=== PATIENT | female | born 2000 ===

== ENCOUNTER 2024-02-13 06:33 | Observation (INO) | payer BC, SELFPAY ==
[2024-02-13] VITALS (10 sets, daily range): BP systolic 75–157; BP diastolic 49–96; PULSE 97–123; RESP 19–28; TEMP 36.6–39.2; O2SAT 95–100; BMI 34.9
--- NOTE | ~2024-02-13 | CT_ITS ---
EXAMINATION: CT HEAD WITHOUT CONTRAST (STROKE PROTOCOL) CLINICAL INFORMATION: Stroke protocol. Left-sided facial droop. Sudden onset headache. COMPARISON: None available. TECHNIQUE: Contiguous axial imaging was performed from the skull base to vertex without intravenous administration of contrast. This CT examination was performed using dose optimization techniques as appropriate, variously including the following: *Automated exposure control *Adjustment of mA and/or kV according to patient size (this includes techniques or standardized protocols for targeted exams where dose is matched to indication/reason for exam; i.e. extremities or head) *Use of iterative reconstruction technique DLP: 700 mGy-cm FINDINGS: The brain parenchyma has normal attenuation. The alexis-white matter differentiation is well preserved. No evidence of an acute major vascular territory infarction. No intracranial hemorrhage, extra-axial fluid collection, focal mass effect or midline shift. The ventricles have normal size and configuration; no hydrocephalus. The brainstem and cerebellum have a normal appearance. The cerebellar tonsils are in normal position. The calvarium is intact. The visualized paranasal sinuses are well aerated and without air-fluid levels. The mastoid air cells and middle ear cavities are clear. The orbits and globes are unremarkable. The temporomandibular joints are normal. CT/CT head for stroke IMPRESSION: No acute intracranial pathology. This critical result was discussed with GURPREET Smalls, at 7:26 AM on . It was ascertained that the content and urgency of the report was understood at the time of direct communication.
--- NOTE | ~2024-02-13 | FL_ITS ---
FLUOROSCOPIC GUIDED LUMBAR PUNCTURE INDICATION: Fever, headache, altered mental status, COVID+ TECHNIQUE/FINDINGS: Risks and benefits and possible complications were discussed with the patient's mother and the consent form was signed. Patient was placed prone on the fluoroscopy table. The back was prepped and draped in routine sterile fashion. Betadine was used as a skin antiseptic. Utilizing fluoroscopic guidance, the L3-4 interlaminar space was accessed with a 22 gauge quinkie spinal needle and clear CSF fluid was obtained. Opening pressure was 33 cm H20 in the left lateral decubitus position. 12 cc of fluid was sent for analysis. The needle was removed without immediate complications. Total fluoroscopy time: 0.5 min FL/FL guided lumbar puncture LP IMPRESSION: Successful fluoroscopic lumbar puncture. Opening pressure is elevated at 33 cm H2O. This procedure was performed by Junior Diallo PA-C and supervised by Dr. Escobar.
--- NOTE | ~2024-02-13 | XR_ITS ---
EXAMINATION: XR CHEST CLINICAL INFORMATION: Shortness of breath COMPARISON: None available. TECHNIQUE: Frontal view of the chest was obtained. FINDINGS: No significant abnormality is noted involving the heart, lungs, mediastinum, bony thorax or soft tissues. XR/XR chest 1V IMPRESSION: Unremarkable examination.
--- NOTE | ~2024-02-13 | XR_ITS ---
EXAMINATION: XR CHEST CLINICAL INFORMATION: Dyspnea COMPARISON: 02/13/2024 TECHNIQUE: Frontal view of the chest was obtained. FINDINGS: The lungs are hypoinflated. No definite consolidation. No evidence of pneumothorax, significant pleural effusion, or overt pulmonary edema. Cardiac silhouette appears prominent though may be accentuated by low lung volumes. No acute osseous findings are seen. XR/XR chest 1V IMPRESSION: Low lung volumes without definite acute findings.
--- NOTE | ~2024-02-13 | CT_ITS ---
EXAMINATION: CTA NECK WITH CONTRAST (STROKE) CTA BRAIN WITH CONTRAST (STROKE) CLINICAL INFORMATION: Suspect acute stroke. Assess for major vessel occlusion. Please call report. Left-sided facial droop. COMPARISON: Noncontrast images of the head from 02/13/2024. TECHNIQUE: CTA of the head and neck was performed in the axial plane from the mediastinum to the skull vertex using 70 mL Omnipaque 350 intravenous contrast. Additional reformatted multiplanar images including maximum intensity projection MIP images are generated on the CT workstation. This CT examination was performed using dose optimization techniques as appropriate, variously including the following: *Automated exposure control *Adjustment of mA and/or kV according to patient size (this includes techniques or standardized protocols for targeted exams where dose is matched to indication/reason for exam; i.e. extremities or head) *Use of iterative reconstruction technique The degree of stenosis, if seen, is determined by criteria similar to NASCET. DLP: 1500 mGy-cm FINDINGS: HEAD: The brain parenchyma has normal attenuation. No intracranial mass, cerebral edema, hemorrhage, extraaxial fluid collection or midline shift. The ventricles and sulci are normal in size and configuration. The calvarium is intact. The paranasal sinuses are well-aerated and without air fluid levels. The orbits, globes and temporomandibular joints are unremarkable. SOFT TISSUES AND LUNG APICES: Lung apices are normal. No fluid collection, soft tissue mass or lymphadenopathy in the neck. NECK CTA: This is a mildly motion degraded examination. The aortic arch has a classic configuration and the arch vessel origins are widely patent. The vertebral arteries are co-dominant and both vertebral origins are widely patent. Both common carotid arteries are normal in course and caliber. Both internal carotid arteries are widely patent and without evidence of dissection or focal stenosis. CRANIAL CTA: There is normal opacification of the major intracranial vessels. The petrous, cavernous and supraclinoid segments of the ICAs are widely patent. The intradural segments of the vertebral arteries and basilar artery are patent. No evidence of acute proximal large vessel occlusion, flow-limiting stenosis or saccular intracranial aneurysm. No abnormal parenchymal enhancement or regional oligemia. No evidence of dural venous sinus thrombosis. CT/CT angio head neck stroke IMPRESSION: No acute imaging abnormalities. No evidence of carotid or vertebral artery stenosis. Also, no acute vascular pathology is identified within the head. There is no evidence of intracranial hemorrhage, mass or infarction. This critical result was discussed with GURPREET Smalls, at 7:26 AM on . It was ascertained that the content and urgency of the report was understood at the time of direct communication.
--- NOTE | 2024-02-13 06:50 | ECG_ITS ---
Test Reason : SYNCOPE Blood Pressure : / mmHG Vent. Rate : 111 BPM Atrial Rate : 111 BPM P-R Int : 136 ms QRS Dur : 076 ms QT Int : 308 ms P-R-T Axes : 056 048 017 degrees QTc Int : 418 ms Sinus tachycardia Otherwise normal ECG No previous ECGs available Referred By: Alexa Hernández Electronically Signed By:EZEQUIEL WINTER MD
--- NOTE | 2024-02-13 06:51 | ED_ITS ---
HPI - General Adult General Chief complaint: Syncope Stated complaint: syncope Time Seen by Provider: 02/13/24 06:42 Source: patient Mode of arrival: EMS Limitations: no limitations History of Present Illness ED Provider: Alexa Hernández PA-C HPI narrative: This is a 23 yo female pmh of anxiety, Bipolar 1 Disorder, PTSD presenting with cc of syncope arriving via EMS. Patient reports going to the gym this morning around 6:00 am, feeling unwell at the gym with nausea, weakness and headache. Per EMS, a family member then found her passed out at home and she was brought here via ambulance. Patient reports no headache at time of exam but, but states she has pressure in her head, is nauseas, has chest pressure, palpitations, tingling in both hands, tingling all over face, and reports I'm freezing . Patient is slurring her words and having difficulties following commands and answering questions completely. Reports she has never had a syncopal episode like this in the past that she can recall. Seen at 0700. NIH stroke scale difficult to asses due to patient having difficulty following commands. Related Data Allergies Allergy/AdvReac Type Severity Reaction Status Date / Time Penicillins Allergy Unknown Unknown Verified 02/13/24 06:46 Review of Systems 2 Review of Systems: Yes all other systems are reviewed and are negative PMFSH Past Medical History Attestation statement: The following information was validated with the patient. Source: old records reviewed and nursing notes reviewed Social History Social History Smoked in Last 30 Days: No Use of substances other than those prescribed or required for medical reasons: No Advance Directives: No Do you have a plan to hurt others: No Plan Patient : No Physical Exam ED Vital Signs: Vital Signs - 24 hr 02/13/24 08:24 02/13/24 10:14 02/13/24 11:55 Temperature 99.5 F 102.5 F H 99.8 F Pulse Rate 116 H 117 H 123 H Respiratory Rate 26 H 27 H 28 H Blood Pressure 141/61 H 128/77 119/61 Pulse Oximetry 100 96 96 Oxygen Delivery Method Room Air Room Air Room Air 02/13/24 13:18 02/13/24 15:36 02/13/24 15:37 Temperature Pulse Rate 107 H 118 H Respiratory Rate Blood Pressure 115/66 114/67 Pulse Oximetry 95 Oxygen Delivery Method Room Air 02/13/24 15:38 Temperature Pulse Rate 114 H Respiratory Rate Blood Pressure 75/49 L Pulse Oximetry Oxygen Delivery Method BMI result Body Mass Index 34.9 Appearance: ?NIH stroke scale difficult to asses due to patient having difficulty following commands and answering questions. Patient slurring her words. Head: Normocephalic, atraumatic, no step-offs or deformities Eyes: Pupils equal, round and reactive to light.? Neck: Normal inspection.? Neck supple.? CVS: + Sinus tachycardia.? Pulses normal.? Respiratory: No acute respiratory distress.? +Quick and labored breathing secondary to anxiety (per patient). Breath sounds normal.? Abdomen: Soft and nontender.? Skin: Skin warm and dry.? Normal skin color.? Normal skin turgor.? Extremities: Strength and ROM difficulty to assess due to patient difficulty following commands and answering questions. No lower extremity edema.? No calf ttp. Neuro: Oriented X 3.? Slow to respond. + Patient slurring her words and having trouble following commands and answering questions. Left side of face drooping and unable to puff left cheek on initial exam after reeval no longer having drooping Course Reevaluation(s) Reevaluation #1: I did speak to neurology who states r/o SAH due to hx. Unlikely ischemic stroke. R/O other causes such as possible migrane. Time: 07:20 Reevaluation #2: At this time, infection suspected. Temp of 102.5 F. Blood cultures drawn and pending. Patient will be covered with ceftriaxone as well as vancomycin. Time: 10:18 Reevaluation #3: Patient does not have a white count however does have a neutrophil predominance, I can not rule out aseptic meningitis. Chemistry unremarkable. CPK slightly elevated 153. Receiving IV fluids. Negative troponin, negative BNP. D-dimer negative, coags normal. Chest x-ray unremarkable. CT head and neck angio evidence of carotid or vertebral artery stenosis no acute imaging abnormalities. Dry CT normal. Patient continues to have very slow speech, stating she does not feel well. She has a fever. Lumbar puncture indicated to rule out meningitis/encephalitis. Time: 10:42 Additional Reevaluation(s): 1200: COVID test returned positive. Droplet precautions started. Unremarkable LP slightly elevated opening pressure but not by much + orthostats --> admit Medications Administered Discontinued Medications Generic Name Dose Route Start Last Admin Trade Name Nabil PRN Reason Stop Dose Admin Acetaminophen 975 mg 02/13/24 10:17 02/13/24 10:21 Acetaminophen 325 Mg Tablet PO 02/13/24 10:18 975 mg ONCE ONE Administration Hydroxyzine HCl 25 mg 02/13/24 08:35 02/13/24 09:10 Hydroxyzine Hcl 25 Mg Tablet PO 02/13/24 08:36 25 mg ONCE ONE Administration Ceftriaxone Sodium 1 gm/ 50 mls @ 100 mls/hr 02/13/24 10:16 02/13/24 11:24 Sodium Chloride IV 02/13/24 10:45 Infused ONCE ONE Infusion Vancomycin HCl 2,000 mg in 500 mls @ 250 mls/hr 02/13/24 10:16 02/13/24 14:29 Vancomycin/Ns IV 02/13/24 12:15 Infused ONCE ONE Infusion Sodium Chloride 2,940 mls @ 2,940 mls/hr 02/13/24 10:18 02/13/24 14:30 Ns 30 ml/kg infuse over 1 hr (2940 ml) 02/13/24 11:17 Infused IV Infusion .Q1H STA Ceftriaxone Sodium 1 gm/ 50 mls @ 100 mls/hr 02/13/24 10:40 02/13/24 12:20 Sodium Chloride IV 02/13/24 11:09 Infused ONCE ONE Infusion Iohexol 100 ml 02/13/24 07:32 02/13/24 07:32 Iohexol 350 Mg/Ml 100 Ml Infus..Btl IV 02/13/24 07:33 70 ml ONCE ONE Administration Lorazepam 2 mg 02/13/24 13:04 02/13/24 13:08 Lorazepam 1 Mg Tablet PO 02/13/24 13:05 2 mg ONCE ONE Administration Medical Decision Making Medical Decision Making [facility] Narrative: 0708 23 yo female presenting via EMS for an episode of syncope this morning. Patient went to the gym this morning, felt unwell, had headache, nausea, then family member found her passed out at home. Now reporting tingling in bilateral hands, face, chest pressure. PE: NIH stroke scale difficult to asses due to patient having difficulty following commands and answering questions. Patient slurring her words. Neuro: Oriented X 3. Slow to respond.? + Patient slurring her words and having trouble following commands and answering questions. Left side of face drooping and unable to puff left cheek. Concerns for syncope vs complex migrane. Rule out ischemic/hemorrhagic stroke/SAH, meningitis/encephalitis. Metabolic derangements vs electrolyte abnormalities vs panic attack vs TIA vs [place] Palsy. Less likely acs, pe, dissection Plan: Imaging, labs, lumbar puncture Due to the L sided droop on exam will call a stroke protocol Differential Diagnosis Differential Diagnoses: The differential diagnosis associated with the presentation includes Concerns for syncope vs complex migrane. Rule out ischemic/hemorrhagic stroke/SAH, meningitis/encephalitis. Metabolic derangements vs electrolyte abnormalities vs panic attack vs TIA vs [place] Palsy. Less likely acs, pe, dissection Lab Data MDM Lab Attestation statement: I reviewed the patient's lab results. 02/13/24 07:00 02/13/24 07:00 Labs: Lab Results 02/13/24 02/13/24 02/13/24 Range/Units 07:00 07:33 07:34 WBC 6.4 (4.8-10.8) X10*3/uL RBC 4.53 (4.20-5.50) X10*6/uL Hgb 12.3 (12.0-16.0) g/dl Hct 37.1 (37.0-47.0) % MCV 81.9 (80.0-98.0) fL MCH 27.2 (27.0-33.0) pg MCHC 33.2 (31.0-35.0) g/dl RDW 12.8 (11.0-16.0) % Plt Count 292 (160-400) X10*3/uL MPV 9.8 (9.4-12.3) fL Immature Gran % (Auto) 0.5 H (0.0-0.4) % Neut % (Auto) 78.3 H (45-73) % Lymph % (Auto) 12.8 L (20-40) % [place] % (Auto) 6.9 (2-11) % Eos % (Auto) 0.9 (0-4) % Baso % (Auto) 0.6 (0-2) % Lymph # (Auto) 0.8 L (1.2-4.9) X10*3/uL [place] # (Auto) 0.4 (0.1-1.2) X10*3/uL Eos # (Auto) 0.1 (0.0-0.4) X10*3/uL Baso # (Auto) 0.0 (0.0-0.2) X10*3/uL Abs Immat Gran (auto) 0.03 (0.00-0.03) X10*3/uL Absolute Neuts (auto) 5.0 (2.0-8.3) x10*3/uL Absolute Nucleated RBC 0.000 (0.0-0.012) X10*3/uL Nucleated RBC % (auto) 0.0 (0.0-0.2) /100WBC Whole Blood PT 12.5 (11.1-13.5) sec Whole Blood INR 1.0 (0.9-1.1) D-Dimer High Sensitivty 171 NG/ML Sodium 139 (135-145) mmol/L Potassium 3.6 (3.3-5.1) mmol/L Chloride 107 (96-108) mmol/L Carbon Dioxide 24 (22-29) mmol/L Anion Gap 12 (12-20) BUN 13 (9-16) mg/dL Creatinine 0.88 (0.5-1.4) mg/dL Estim Creat Clear Calc 115.3 Estimated GFR > 60 POC Glucose 79 (60-115) mg/dL Random Glucose 101 (60-115) mg/dL Lactic Acid (0.5-2.0) mmol/L Calcium 9.9 (8.4-10.2) mg/dL Total Bilirubin 0.4 (0.0-1.0) mg/dL AST 23 (5-31) U/L ALT 21 (0-31) U/L Alkaline Phosphatase 85 (39-117) U/L Total Creatine Kinase 153 H (26-140) U/L Troponin I High Sens < 2.7 (<3.5-17.0) ng/L B-Natriuretic Peptide < 10 (<100) pg/mL Total Protein 8.1 H (6.5-8.0) g/dL Albumin 4.2 (3.5-5.0) g/dL Beta HCG, Quant < 2 mIU/mL CSF Tube Number CSF Volume ML CSF Appearance CSF Color CSF WBC MM*3 CSF RBC MM*3 CSF Neutrophils % CSF Appearance (b) CSF Glucose mg/dL CSF Total Protein (15-45) mg/dL Influenza Type A (PCR) (Negative) Influenza Type B (PCR) (Negative) RSV RNA Qual (PCR) (Negative) SARS-CoV-2 RNA (RT-PCR) (Negative) 02/13/24 02/13/24 02/13/24 Range/Units 10:35 10:47 13:31 WBC (4.8-10.8) X10*3/uL RBC (4.20-5.50) X10*6/uL Hgb (12.0-16.0) g/dl Hct (37.0-47.0) % MCV (80.0-98.0) fL MCH (27.0-33.0) pg MCHC (31.0-35.0) g/dl RDW (11.0-16.0) % Plt Count (160-400) X10*3/uL MPV (9.4-12.3) fL Immature Gran % (Auto) (0.0-0.4) % Neut % (Auto) (45-73) % Lymph % (Auto) (20-40) % [place] % (Auto) (2-11) % Eos % (Auto) (0-4) % Baso % (Auto) (0-2) % Lymph # (Auto) (1.2-4.9) X10*3/uL [place] # (Auto) (0.1-1.2) X10*3/uL Eos # (Auto) (0.0-0.4) X10*3/uL Baso # (Auto) (0.0-0.2) X10*3/uL Abs Immat Gran (auto) (0.00-0.03) X10*3/uL Absolute Neuts (auto) (2.0-8.3) x10*3/uL Absolute Nucleated RBC (0.0-0.012) X10*3/uL Nucleated RBC % (auto) (0.0-0.2) /100WBC Whole Blood PT (11.1-13.5) sec Whole Blood INR (0.9-1.1) D-Dimer High Sensitivty NG/ML Sodium (135-145) mmol/L Potassium (3.3-5.1) mmol/L Chloride (96-108) mmol/L Carbon Dioxide (22-29) mmol/L Anion Gap (12-20) BUN (9-16) mg/dL Creatinine (0.5-1.4) mg/dL Estim Creat Clear Calc Estimated GFR POC Glucose (60-115) mg/dL Random Glucose (60-115) mg/dL Lactic Acid 1.5 (0.5-2.0) mmol/L Calcium (8.4-10.2) mg/dL Total Bilirubin (0.0-1.0) mg/dL AST (5-31) U/L ALT (0-31) U/L Alkaline Phosphatase (39-117) U/L Total Creatine Kinase (26-140) U/L Troponin I High Sens (<3.5-17.0) ng/L B-Natriuretic Peptide (<100) pg/mL Total Protein (6.5-8.0) g/dL Albumin (3.5-5.0) g/dL Beta HCG, Quant mIU/mL CSF Tube Number 1 CSF Volume ML CSF Appearance CSF Color CSF WBC MM*3 CSF RBC MM*3 CSF Neutrophils % CSF Appearance (b) CSF Glucose mg/dL CSF Total Protein (15-45) mg/dL Influenza Type A (PCR) NEGATIVE (Negative) Influenza Type B (PCR) NEGATIVE (Negative) RSV RNA Qual (PCR) NEGATIVE (Negative) SARS-CoV-2 RNA (RT-PCR) POSITIVE A (Negative) 02/13/24 Range/Units 13:31 WBC (4.8-10.8) X10*3/uL RBC (4.20-5.50) X10*6/uL Hgb (12.0-16.0) g/dl Hct (37.0-47.0) % MCV (80.0-98.0) fL MCH (27.0-33.0) pg MCHC (31.0-35.0) g/dl RDW (11.0-16.0) % Plt Count (160-400) X10*3/uL MPV (9.4-12.3) fL Immature Gran % (Auto) (0.0-0.4) % Neut % (Auto) (45-73) % Lymph % (Auto) (20-40) % [place] % (Auto) (2-11) % Eos % (Auto) (0-4) % Baso % (Auto) (0-2) % Lymph # (Auto) (1.2-4.9) X10*3/uL [place] # (Auto) (0.1-1.2) X10*3/uL Eos # (Auto) (0.0-0.4) X10*3/uL Baso # (Auto) (0.0-0.2) X10*3/uL Abs Immat Gran (auto) (0.00-0.03) X10*3/uL Absolute Neuts (auto) (2.0-8.3) x10*3/uL Absolute Nucleated RBC (0.0-0.012) X10*3/uL Nucleated RBC % (auto) (0.0-0.2) /100WBC Whole Blood PT (11.1-13.5) sec Whole Blood INR (0.9-1.1) D-Dimer High Sensitivty NG/ML Sodium (135-145) mmol/L Potassium (3.3-5.1) mmol/L Chloride (96-108) mmol/L Carbon Dioxide (22-29) mmol/L Anion Gap (12-20) BUN (9-16) mg/dL Creatinine (0.5-1.4) mg/dL Estim Creat Clear Calc Estimated GFR POC Glucose (60-115) mg/dL Random Glucose (60-115) mg/dL Lactic Acid (0.5-2.0) mmol/L Calcium (8.4-10.2) mg/dL Total Bilirubin (0.0-1.0) mg/dL AST (5-31) U/L ALT (0-31) U/L Alkaline Phosphatase (39-117) U/L Total Creatine Kinase (26-140) U/L Troponin I High Sens (<3.5-17.0) ng/L B-Natriuretic Peptide (<100) pg/mL Total Protein (6.5-8.0) g/dL Albumin (3.5-5.0) g/dL Beta HCG, Quant mIU/mL CSF Tube Number 4 CSF Volume 3.0 ML CSF Appearance CLEAR CSF Color COLORLESS CSF WBC 0 MM*3 CSF RBC 0 MM*3 CSF Neutrophils 1 % CSF Appearance (b) Clear, Colorless CSF Glucose 58 mg/dL CSF Total Protein 19.9 (15-45) mg/dL Influenza Type A (PCR) (Negative) Influenza Type B (PCR) (Negative) RSV RNA Qual (PCR) (Negative) SARS-CoV-2 RNA (RT-PCR) (Negative) Radiology Impression Discussion of test interpretation with radiology: I have reviewed the radiologist's reading. Critical Care Time Critical Care Time Critical Care Time: Yes Total Critical Care Time: 60 Attestation: I attest to this time spent taking care of the patient, obtaining history, physical, reviewing labs, imaging, speaking to my attending, specialist or hospitalist. Discharge Plan Discharge Clinical Impression: Syncope and collapse, COVID-19, Orthostatic hypotension Patient Disposition: Admitted As Inpatient Print Language: Persian
[2024-02-13 07:05] LABS: MANUAL DIFF FLAG NO
[2024-02-13 07:10] LABS: Basophils Percent Auto 0.6 % (0-2); Eosinophils Absolute Auto 0.1 X10*3/uL (0.0-0.4); Eosinophils Percent Auto 0.9 % (0-4); Hematocrit 37.1 % (37.0-47.0); Hemoglobin 12.3 g/dl (12.0-16.0); Imm Gran Abs Auto 0.03 X10*3/uL (0.00-0.03); Imm Gran Pct Auto 0.5 % (0.0-0.4); Lymphocytes Absolute Auto 0.8 X10*3/uL (1.2-4.9); Lymphocytes Percent Auto 12.8 % (20-40); Mean Corpuscular HGB Conc 33.2 g/dl (31.0-35.0); Mean Corpuscular Hemoglobin 27.2 pg (27.0-33.0); Mean Corpuscular Volume 81.9 fL (80.0-98.0); Mean Platelet Volume 9.8 fL (9.4-12.3); Monocytes Absolute Auto 0.4 X10*3/uL (0.1-1.2); Monocytes Percent Auto 6.9 % (2-11); Neutrophils Percent Auto 78.3 % (45-73); Platelet Count 292 X10*3/uL (160-400); Red Blood Count 4.53 X10*6/uL (4.20-5.50); Red Cell Distribution Width 12.8 % (11.0-16.0); White Blood Count 6.4 X10*3/uL (4.8-10.8)
[2024-02-13 07:16] LABS: D Dimer High Sensitivity 171 NG/ML
[2024-02-13 07:24] LABS: Alanine Aminotransferase 21 U/L (0-31); Albumin Level 4.2 g/dL (3.5-5.0); Alkaline Phosphatase 85 U/L (39-117); Anion Gap 12 (12-20); Aspartate Amino Transferase 23 U/L (5-31); Bilirubin Total 0.4 mg/dL (0.0-1.0); Blood Urea Nitrogen 13 mg/dL (9-16); Calcium 9.9 mg/dL (8.4-10.2); Carbon Dioxide 24 mmol/L (22-29); Chloride 107 mmol/L (96-108); Creatinine Clr Calc Pharmacy 115.3; Estimated Glomerular Filt Rate > 60; Glucose Random 101 mg/dL (60-115); Potassium 3.6 mmol/L (3.3-5.1); Sodium 139 mmol/L (135-145); Total Protein 8.1 g/dL (6.5-8.0)
[2024-02-13] MEDS: iohexoL 350 MG/ML 100 ML INFUS..BTL IV (07:32)
[2024-02-13 07:43] LABS: Prothrombin Time Whole Bld POC 12.5 sec (11.1-13.5)
[2024-02-13 07:44] LABS: Glucose, Whole Blood 79 mg/dL (60-115)
--- NOTE | 2024-02-13 08:03 | PC.NURSE ---
patient bought to ED via ems fr c/o syncope at home. patient arrives to ED alert, visibly anxious, c/o tingling in face. patient anxiety increased significantly when RN inserted IV, hyperventilating, crying. PA assessed patient. patient brought to CT scanner to r/o stroke. PA at bedside at this time reviewing plan of care with patient and family. patient calm and this time. resting with eyes closed.
[2024-02-13 08:54] LABS: Troponin-I High Sensitivity < 2.7 ng/L (<3.5-17.0)
[2024-02-13 08:56] LABS: B Type Natriuretic Peptide < 10 pg/mL (<100)
[2024-02-13] MEDS: hydrOXYzine HCL 25 MG TABLET PO (09:10)
[2024-02-13] MEDS: Acetaminophen 325 MG TABLET 975 MG PO (10:21)
[2024-02-13] MEDS: cefTRIAXone sodium 1 GM in 0.9 % Sodium Chloride 50 ML IV ×2 (10:47→11:22)
[2024-02-13 10:58] LABS: Lactic Acid 1.5 mmol/L (0.5-2.0)
[2024-02-13 11:13] LABS: HCG Quantitative < 2 mIU/mL
[2024-02-13 12:04] LABS: Influenza A PCR NEGATIVE (Negative); Influenza B PCR NEGATIVE (Negative); Resp Syncy Virus RNA Qual PCR NEGATIVE (Negative); SARS COV2 PCR INHOUSE POSITIVE (Negative)
[2024-02-13] MEDS: vancomycin/NS 2,000 MG/500 ML PLAST..BAG 250 MG IV (12:08)
[2024-02-13] MEDS: LORazepam 1 MG TABLET 2 MG PO (13:08)
--- NOTE | 2024-02-13 13:19 | PC.NURSE ---
Assumed care of this patient at 1100, patient fatigued/weak in bed, found to be COVID+, ST on monitor, IV fluids/abx running, patient currently in IR for LP.
--- NOTE | 2024-02-13 13:41 | PM.PROC ---
Brief Operative Note Date of procedure: 02/13/24 Pre-op diagnosis: Fever, lethargy, ?AMS, Covid + Post-op diagnosis: same Procedure: FL Lumbar puncture L2-3, Opening pressure 33 cm H20, 12 cc clear csf removed and sent for anlaysis No immediate complications Anesthesia: local Condition: stable
[2024-02-13 14:24] LABS: CSF Appearance Clear, Colorless; CSF Tube # 1
[2024-02-13 14:34] LABS: Glucose CSF 58 mg/dL; Total Protein CSF 19.9 mg/dL (15-45)
[2024-02-13 14:47] LABS: Appearance CSF CLEAR
[2024-02-13 14:48] LABS: CSF Tube # 4; Color CSF COLORLESS; Neutrophils CSF 1 %; Red Blood Cell CSF 0 MM*3; White Blood Cell CSF 0 MM*3
[2024-02-13 15:48] LABS: Cryptococcus neoformans/gattii Not Detected (Not Detect.); Enterovirus Not Detected (Not Detect.); Escherichia coli K1 Not Detected (Not Detect.); Haemophilus influenzae Not Detected (Not Detect.); Herpes simplex virus 1 Not Detected (Not Detect.); Herpes simplex virus 2 Not Detected (Not Detect.); Human herpesvirus 6 Not Detected (Not Detect.); Human parechovirus Not Detected (Not Detect.); Listeria monocytogenes Not Detected (Not Detect.); Neisseria meningitidis Not Detected (Not Detect.); Streptococcus agalactiae Not Detected (Not Detect.); Streptococcus pneumoniae Not Detected (Not Detect.); Varicella zoster virus Not Detected (Not Detect.)
[2024-02-13] MEDS: 0.9 % Sodium Chloride 1,000 ML 999 ML IV (16:03)
--- NOTE | 2024-02-13 16:12 | P.HPHOSP_ITS ---
History of Present Illness Date of Service: 02/13/24 Chief Complaint: syncope 23yo F with bipolar disorder who went to the gym this morning around 4:30am but was only able to exercise on the treadmill for a few minutes because she started feeling unwell. She developed nausea and frontal headache and went home. Her sister heard her fall and found her passed out for about 45 seconds. She was shivering but did not have rhythmic jerking. She was confused and slurring her speech. No incontinence. EMS was called and brought her in. In the ED, she was noted to have a left-sided facial droop. The PA spoke to the neurologist who recommended ruling out SAH. She then developed a temperature of 102.5F. Blood cultures were drawn and she was given ceftriaxone and vancomycin, along with lorazepam and acetaminophen. CT of the head was normal, along with CT angio of the head and neck. Lumbar puncture was done by IR and returned 0 WBCs and 0 RBCs. Covid-19 PCR was positive. Facial droop and headache have resolved completely. She denies any unilateral weakness, blurry vision, neck stiffness, cough, sore throat, or shortness of breath. Orthostatic vital signs showed BP drop from 115/66 supine to 75/49 standing. Review of Systems 2 Review of Systems: Yes all other systems are reviewed and are negative [facility] Medical History (Updated 02/13/24 @ 16:18 by Skip Mack MD) Bipolar depression Pertinent family history: no epilepsy/seizure Social History Smoked in Last 30 Days: No Use of substances other than those prescribed or required for medical reasons: No Advance Directives: No Do you have a plan to hurt others: No Plan Patient : No Meds Allergies Allergy/AdvReac Type Severity Reaction Status Date / Time Penicillins Allergy Unknown Unknown Verified 02/13/24 06:46 Active Medications: Current Medications Acetaminophen (Acetaminophen 325 Mg Tablet) 650 mg PO Q6H PRN PRN Reason: Pain, Mild (Pain Scale 1-3) Sodium Chloride (Ns) 1,000 mls @ 999 mls/hr IV .Q1H1M ROBERT Stop: 02/13/24 16:45 Last Admin: 02/13/24 16:03 Dose: 999 mls/hr Sodium Chloride (Ns) 1,000 mls @ 100 mls/hr IVCONT .Q10H ROBERT Ondansetron HCl (Ondansetron Hcl 4 Mg/2 Ml Vial) 4 mg IVPUSH Q8H PRN PRN Reason: Nausea and Vomiting Physical Exam 2 Vital Signs and Narrative: Vital Signs: Last Vital Signs Temp 99.8 F 02/13/24 11:55 Pulse 114 H 02/13/24 15:38 Resp 28 H 02/13/24 11:55 BP 75/49 L 02/13/24 15:38 Pulse Ox 95 02/13/24 13:18 O2 Del Method Room Air 02/13/24 13:18 BMI result Body Mass Index 34.9 Gen: in no acute distress HEENT: sclera anicteric, moist mucus membranes, no oral lesions Neck: supple, no adenopathy Lungs: clear to auscultation bilaterally Heart: regular, tachycardic, no murmurs Abd: soft, non-tender, non-distended Ext: no edema Skin: warm/well-perfused Neuro: alert and oriented x3, no focal findings Psych: appropriate affect Results Labs 02/13/24 07:00 02/13/24 07:00 Labs: Laboratory Results - last 24 hr 02/13/24 02/13/24 02/13/24 07:00 07:33 07:34 MCV 81.9 MCH 27.2 MCHC 33.2 RDW 12.8 Plt Count 292 MPV 9.8 Immature Gran % (Auto) 0.5 H Neut % (Auto) 78.3 H Lymph % (Auto) 12.8 L [place] % (Auto) 6.9 Eos % (Auto) 0.9 Baso % (Auto) 0.6 Lymph # (Auto) 0.8 L [place] # (Auto) 0.4 Eos # (Auto) 0.1 Baso # (Auto) 0.0 Abs Immat Gran (auto) 0.03 Absolute Neuts (auto) 5.0 Absolute Nucleated RBC 0.000 Nucleated RBC % (auto) 0.0 Whole Blood PT 12.5 Whole Blood INR 1.0 D-Dimer High Sensitivty 171 Anion Gap 12 Estim Creat Clear Calc 115.3 Estimated GFR > 60 POC Glucose 79 Random Glucose 101 Lactic Acid Calcium 9.9 Total Bilirubin 0.4 AST 23 ALT 21 Alkaline Phosphatase 85 Total Creatine Kinase 153 H Troponin I High Sens < 2.7 B-Natriuretic Peptide < 10 Total Protein 8.1 H Albumin 4.2 Beta HCG, Quant < 2 CSF Tube Number CSF Volume CSF Appearance CSF Color CSF WBC CSF RBC CSF Neutrophils CSF Appearance (b) CSF Glucose CSF Total Protein CSF C.neoform/gat PCR CSF CMV DNA (PCR) CSF Enterovirus (PCR) CSF E. coli K1 (PCR) CSF H. influenzae (PCR) CSF HSV I (PCR) CSF HSV II (PCR) CSF HHV 6 (PCR) CSF L.monocytogenes PCR CSF N. meningitidis PCR CSF Parechovirus (PCR) CSF S. agalactiae (PCR) CSF S. pneumoniae (PCR) CSF VZV (PCR) Influenza Type A (PCR) Influenza Type B (PCR) RSV RNA Qual (PCR) SARS-CoV-2 RNA (RT-PCR) 02/13/24 02/13/24 02/13/24 10:35 10:47 13:31 MCV MCH MCHC RDW Plt Count MPV Immature Gran % (Auto) Neut % (Auto) Lymph % (Auto) [place] % (Auto) Eos % (Auto) Baso % (Auto) Lymph # (Auto) [place] # (Auto) Eos # (Auto) Baso # (Auto) Abs Immat Gran (auto) Absolute Neuts (auto) Absolute Nucleated RBC Nucleated RBC % (auto) Whole Blood PT Whole Blood INR D-Dimer High Sensitivty Anion Gap Estim Creat Clear Calc Estimated GFR POC Glucose Random Glucose Lactic Acid 1.5 Calcium Total Bilirubin AST ALT Alkaline Phosphatase Total Creatine Kinase Troponin I High Sens B-Natriuretic Peptide Total Protein Albumin Beta HCG, Quant CSF Tube Number 1 CSF Volume CSF Appearance CSF Color CSF WBC CSF RBC CSF Neutrophils CSF Appearance (b) CSF Glucose CSF Total Protein CSF C.neoform/gat PCR CSF CMV DNA (PCR) CSF Enterovirus (PCR) CSF E. coli K1 (PCR) CSF H. influenzae (PCR) CSF HSV I (PCR) CSF HSV II (PCR) CSF HHV 6 (PCR) CSF L.monocytogenes PCR CSF N. meningitidis PCR CSF Parechovirus (PCR) CSF S. agalactiae (PCR) CSF S. pneumoniae (PCR) CSF VZV (PCR) Influenza Type A (PCR) NEGATIVE Influenza Type B (PCR) NEGATIVE RSV RNA Qual (PCR) NEGATIVE SARS-CoV-2 RNA (RT-PCR) POSITIVE A 02/13/24 13:31 MCV MCH MCHC RDW Plt Count MPV Immature Gran % (Auto) Neut % (Auto) Lymph % (Auto) [place] % (Auto) Eos % (Auto) Baso % (Auto) Lymph # (Auto) [place] # (Auto) Eos # (Auto) Baso # (Auto) Abs Immat Gran (auto) Absolute Neuts (auto) Absolute Nucleated RBC Nucleated RBC % (auto) Whole Blood PT Whole Blood INR D-Dimer High Sensitivty Anion Gap Estim Creat Clear Calc Estimated GFR POC Glucose Random Glucose Lactic Acid Calcium Total Bilirubin AST ALT Alkaline Phosphatase Total Creatine Kinase Troponin I High Sens B-Natriuretic Peptide Total Protein Albumin Beta HCG, Quant CSF Tube Number 4 CSF Volume 3.0 CSF Appearance CLEAR CSF Color COLORLESS CSF WBC 0 CSF RBC 0 CSF Neutrophils 1 CSF Appearance (b) Clear, Colorless CSF Glucose 58 CSF Total Protein 19.9 CSF C.neoform/gat PCR Not Detected CSF CMV DNA (PCR) Not Detected CSF Enterovirus (PCR) Not Detected CSF E. coli K1 (PCR) Not Detected CSF H. influenzae (PCR) Not Detected CSF HSV I (PCR) Not Detected CSF HSV II (PCR) Not Detected CSF HHV 6 (PCR) Not Detected CSF L.monocytogenes PCR Not Detected CSF N. meningitidis PCR Not Detected CSF Parechovirus (PCR) Not Detected CSF S. agalactiae (PCR) Not Detected CSF S. pneumoniae (PCR) Not Detected CSF VZV (PCR) Not Detected Influenza Type A (PCR) Influenza Type B (PCR) RSV RNA Qual (PCR) SARS-CoV-2 RNA (RT-PCR) Imaging Radiologist's Impressions: Impressions Head CT 02/13/24 07:15 IMPRESSION: No acute intracranial pathology. This critical result was discussed with GURPREET Smalls, at 7:26 AM on . It was ascertained that the content and urgency of the report was understood at the time of direct communication. Head/Neck CTA 02/13/24 07:29 IMPRESSION: No acute imaging abnormalities. No evidence of carotid or vertebral artery stenosis. Also, no acute vascular pathology is identified within the head. There is no evidence of intracranial hemorrhage, mass or infarction. This critical result was discussed with GURPREET Smalls, at 7:26 AM on . It was ascertained that the content and urgency of the report was understood at the time of direct communication. Chest X-Ray 02/13/24 08:40 IMPRESSION: Unremarkable examination. Lumbar Puncture Fluoroscopy 02/13/24 13:45 IMPRESSION: Successful fluoroscopic lumbar puncture. Opening pressure is elevated at 33 cm H2O. This procedure was performed by Junior Diallo PA-C and supervised by Dr. Escobar. Assessment and Plan (1) Orthostatic hypotension: Status: Acute (2) COVID-19: Status: Acute (3) Syncope and collapse: Status: Acute Plan 23yo F with bipolar disorder presenting after syncopal episode; found to have fever, Covid-19, and orthostatic hypotension. Had left-sided facial droop by ED provider report but that has resolved syncope likely due to orthostatic hypotension - admit to telemetry, give IV fluids, recheck orthostatics in AM, fall precautions facial droop - has resolved; consult Neurology Covid-19 - droplet precautions; not hypoxic so no steroids bipolar disorder - continue home meds VTE ppx - SCDs dispo - eventually home Quality Stroke Does the patient have a stroke diagnosis?: No VTE Prior VTE?: No VTE Risk Level:: Medical - moderate - high VTE Device Contraindication: N/A - Device Ordered VTE Drug Contraindication: Treatment Not Indicated
--- NOTE | 2024-02-13 16:51 | PHA.MEDREC ---
Pharmacy Consult ? Medication Reconciliation Pharmacy has completed the medication reconciliation. Confirmed medications with patient. She stated she is taking Hydroxyzine 25mg tabs prn for anxiety and her last dose was last night.
[2024-02-13] MEDS: Acetaminophen 325 MG TABLET 650 MG PO (17:50)
[2024-02-13 17:59] LABS: Appearance Urine Clear; Color Urine Yellow; Glucose Urine UA Negative (Negative); Leukocyte Esterase Urine Negative (Negative); Nitrite Urine Negative (Negative); Urine Blood Negative (Negative); Urine Ketones Negative (Negative); Urine Protein Negative (Neg-Trace)
[2024-02-13 18:06] LABS: Amphetamine Screen Urine Not Detected (Not Detect); Barbiturates, Urine Not Detected (Not Detect); Benzodiazepines Screen Urine Not Detected (Not Detect); Buprenorphine Scr Not Detected (Not Detect); Cannabinoid Screen Urine Not Detected (Not Detect); Cocaine Screen Urine Not Detected (Not Detect); Methadone Screen, Urine Not Detected (Not Detect); Opiate Screen Urine Not Detected (Not Detect); Oxycodone Screen Urine Not Detected (Not Detect); Phencyclidine Screen Urine Not Detected (Not Detect); UPreg QC Valid YES; Urine Pregnancy NEGATIVE (NEGATIVE)
[2024-02-13 18:08] LABS: Fentanyl, urine Not Detected (Not Detect)
[2024-02-13] MEDS: Divalproex Sodium 250 MG TABLET.DR PO (18:23)
[2024-02-13] MEDS: 0.9 % Sodium Chloride 1,000 ML 100 ML IVCONT (18:23)
[2024-02-14] VITALS (8 sets, daily range): BP systolic 132–159; BP diastolic 71–93; PULSE 55–117; RESP 12–22; TEMP 36.6–38.2; O2SAT 94–98; BMI 36.3
--- NOTE | 2024-02-14 | ECG_ITS ---
Test Reason : CHEST PAIN Blood Pressure : / mmHG Vent. Rate : 099 BPM Atrial Rate : 099 BPM P-R Int : 144 ms QRS Dur : 076 ms QT Int : 312 ms P-R-T Axes : 052 056 016 degrees QTc Int : 400 ms Normal sinus rhythm Normal ECG When compared with ECG of 13-FEB-2024 06:48, No significant change was found Referred By: Catarina Villarreal Electronically Signed By:EZEQUIEL WINTER MD
--- NOTE | 2024-02-14 01:29 | PM.EVENT ---
Event Note Date of Service: 02/14/24 Event Note: Patient states she is difficulty breathing. Normal oxygen saturation on room air. Breathing 15-20 times a minute. Will obtain VBG. As I was in the room, also complains of midsternal chest discomfort. Obtaining troponin and EKG Time Spent With Patient Time: Total time managing care of this patient today ____ minutes.
--- NOTE | 2024-02-14 01:29 | PC.NURSE ---
pt c/o chest pain, and difficulty breathing. MD aware, EKG and Labs obtained
[2024-02-14 01:42] LABS: Venous Blood Gas Refer to POC result
[2024-02-14 01:46] LABS: VBG Base Excess 0.1 mmol/L; VBG HCO3 23 mmol/L (22-26); VBG pCO2 35 mmHg; VBG pH 7.43 (7.32-7.43); VBG pO2 32 mmHg
[2024-02-14 02:01] LABS: Troponin-I High Sensitivity 6.6 ng/L (<3.5-17.0)
[2024-02-14] MEDS: Acetaminophen 325 MG TABLET 650 MG PO (02:54)
[2024-02-14] MEDS: 0.9 % Sodium Chloride 1,000 ML 100 ML IVCONT ×2 (03:03→14:34)
[2024-02-14] MEDS: guaiFEN/Codeine SF 200/20/10ML 10 ML LIQUID 5 ML PO ×3 (03:03→22:13)
[2024-02-14 03:34] LABS: HIV AB/AG Nonreactive (Nonreactive); HIV Num 1 0.04 S/CO (0.00-0.99)
[2024-02-14] MEDS: Divalproex Sodium 250 MG TABLET.DR PO (08:14)
[2024-02-14 08:53] LABS: Hemoglobin 10.9 g/dl (12.0-16.0); Mean Corpuscular Hemoglobin 27.7 pg (27.0-33.0); Mean Corpuscular Volume 83.8 fL (80.0-98.0); Platelet Count 227 X10*3/uL (160-400); Red Blood Count 3.94 X10*6/uL (4.20-5.50); Red Cell Distribution Width 13.1 % (11.0-16.0); White Blood Count 6.5 X10*3/uL (4.8-10.8)
[2024-02-14 09:19] LABS: Troponin-I High Sensitivity 13.1 ng/L (<3.5-17.0)
[2024-02-14 09:27] LABS: Anion Gap 11 (12-20); Blood Urea Nitrogen 4 mg/dL (9-16); C Reactive Protein 2.63 mg/dL (< or = 0.50); Calcium 8.1 mg/dL (8.4-10.2); Carbon Dioxide 21 mmol/L (22-29); Chloride 109 mmol/L (96-108); Creatinine Clr Calc Pharmacy 140.1; Estimated Glomerular Filt Rate > 60; Glucose Random 97 mg/dL (60-115); Potassium 3.6 mmol/L (3.3-5.1); Sodium 137 mmol/L (135-145)
--- NOTE | 2024-02-14 12:25 | P.PNIM_ITS ---
Subjective Subjective Date of Service: 02/14/24 Interval History: headache resolved no facial droop c/o chest pain, worse with palpitation; pt now coughing. C/o sore throat was hyperventilating this AM febrile to 100.7 overnight Physical Exam 2 Vital Signs: Vital Signs: Last Vital Signs Temp 99.1 F 02/14/24 08:00 Pulse 117 H 02/14/24 08:39 Resp 20 02/14/24 08:00 BP 142/89 H 02/14/24 08:39 Pulse Ox 94 02/14/24 08:00 O2 Del Method Room Air 02/14/24 08:00 BMI result Body Mass Index 36.3 Gen: in no acute distress HEENT: sclera anicteric, moist mucus membranes, no oral lesions Neck: supple, no adenopathy Lungs: clear to auscultation bilaterally Heart: regular, tachycardic, no murmurs Abd: soft, non-tender, non-distended Ext: no edema Skin: warm/well-perfused Neuro: alert and oriented x3, no focal findings Psych: appropriate affect Objective Data Active Medications Acetaminophen (Acetaminophen 325 Mg Tablet) 650 mg PO Q6H PRN PRN Reason: Pain, Mild (Pain Scale 1-3) Last Admin: 02/14/24 02:54 Dose: 650 mg Documented By: GERRY Divalproex Sodium (Divalproex Sodium 250 Mg Tablet.Dr) 250 mg PO DAILY [facility] Last Admin: 02/14/24 08:14 Dose: 250 mg Documented By: CLAYMORP Guaifenesin/Codeine Phosphate (Guaifen/Codeine Sf 200/20/10ml 10 Ml Liquid) 5 ml PO Q4H PRN PRN Reason: Cough Last Admin: 02/14/24 12:06 Dose: 5 ml Documented By: PODMONAEEM Hydroxyzine HCl (Hydroxyzine Hcl 25 Mg Tablet) 25 mg PO BID PRN PRN Reason: Anxiety Sodium Chloride (Ns) 1,000 mls @ 100 mls/hr IVCONT .Q10H [facility] Last Admin: 02/14/24 03:03 Dose: 100 mls/hr Documented By: GERRY Ondansetron HCl (Ondansetron Hcl 4 Mg/2 Ml Vial) 4 mg IVPUSH Q8H PRN PRN Reason: Nausea and Vomiting Labs 02/14/24 08:33 02/14/24 08:33 Labs: Laboratory Results - last 24 hr 02/13/24 02/13/24 02/13/24 13:31 13:31 16:07 MCV MCH MCHC RDW Plt Count MPV Absolute Nucleated RBC Nucleated RBC % (auto) VBG pH VBG pCO2 VBG pO2 VBG HCO3 VBG O2 Saturation VBG Base Excess Anion Gap Estim Creat Clear Calc Estimated GFR Random Glucose Calcium Troponin I High Sens C-Reactive Protein Urine Color Urine Appearance Urine pH Ur Specific [place] Urine Protein Urine Glucose (UA) Urine Ketones Urine Blood Urine Nitrite Ur Leukocyte Esterase Urine Test CSF Tube Number 1 4 CSF Volume 3.0 CSF Appearance CLEAR CSF Color COLORLESS CSF WBC 0 CSF RBC 0 CSF Neutrophils 1 CSF Appearance (b) Clear, Colorless CSF Glucose 58 CSF Total Protein 19.9 CSF C.neoform/gat PCR Not Detected CSF CMV DNA (PCR) Not Detected CSF Enterovirus (PCR) Not Detected CSF E. coli K1 (PCR) Not Detected CSF H. influenzae (PCR) Not Detected CSF HSV I (PCR) Not Detected CSF HSV II (PCR) Not Detected CSF HHV 6 (PCR) Not Detected CSF L.monocytogenes PCR Not Detected CSF N. meningitidis PCR Not Detected CSF Parechovirus (PCR) Not Detected CSF S. agalactiae (PCR) Not Detected CSF S. pneumoniae (PCR) Not Detected CSF VZV (PCR) Not Detected Urine Opiates Screen Ur Buprenorphine Scrn Ur Oxycodone Screen Urine Methadone Screen Urine Fentanyl Screen Ur Barbiturates Screen Ur Phencyclidine Scrn Ur Amphetamines Screen U Benzodiazepines Scrn Urine Cocaine Screen U Marijuana (THC) Screen HIV 1&2 Ab/P24 Ag 4thGn Nonreactive 02/13/24 02/14/24 02/14/24 17:41 01:36 01:37 MCV MCH MCHC RDW Plt Count MPV Absolute Nucleated RBC Nucleated RBC % (auto) VBG pH 7.43 VBG pCO2 35 VBG pO2 32 VBG HCO3 23 VBG O2 Saturation 67.0 VBG Base Excess 0.1 Anion Gap Estim Creat Clear Calc Estimated GFR Random Glucose Calcium Troponin I High Sens 6.6 D C-Reactive Protein Urine Color Yellow Urine Appearance Clear Urine pH 6.0 Ur Specific [place] 1.020 Urine Protein Negative Urine Glucose (UA) Negative Urine Ketones Negative Urine Blood Negative Urine Nitrite Negative Ur Leukocyte Esterase Negative Urine Test NEGATIVE CSF Tube Number CSF Volume CSF Appearance CSF Color CSF WBC CSF RBC CSF Neutrophils CSF Appearance (b) CSF Glucose CSF Total Protein CSF C.neoform/gat PCR CSF CMV DNA (PCR) CSF Enterovirus (PCR) CSF E. coli K1 (PCR) CSF H. influenzae (PCR) CSF HSV I (PCR) CSF HSV II (PCR) CSF HHV 6 (PCR) CSF L.monocytogenes PCR CSF N. meningitidis PCR CSF Parechovirus (PCR) CSF S. agalactiae (PCR) CSF S. pneumoniae (PCR) CSF VZV (PCR) Urine Opiates Screen Not Detected Ur Buprenorphine Scrn Not Detected Ur Oxycodone Screen Not Detected Urine Methadone Screen Not Detected Urine Fentanyl Screen Not Detected Ur Barbiturates Screen Not Detected Ur Phencyclidine Scrn Not Detected Ur Amphetamines Screen Not Detected U Benzodiazepines Scrn Not Detected Urine Cocaine Screen Not Detected U Marijuana (THC) Screen Not Detected HIV 1&2 Ab/P24 Ag 4th 02/14/24 08:33 MCV 83.8 MCH 27.7 MCHC 33.0 RDW 13.1 Plt Count 227 MPV 10.0 Absolute Nucleated RBC 0.000 Nucleated RBC % (auto) 0.0 VBG pH VBG pCO2 VBG pO2 VBG HCO3 VBG O2 Saturation VBG Base Excess Anion Gap 11 L Estim Creat Clear Calc 140.1 Estimated GFR > 60 Random Glucose 97 Calcium 8.1 L D Troponin I High Sens 13.1 D C-Reactive Protein 2.63 H Urine Color Urine Appearance Urine pH Ur Specific [place] Urine Protein Urine Glucose (UA) Urine Ketones Urine Blood Urine Nitrite Ur Leukocyte Esterase Urine Test CSF Tube Number CSF Volume CSF Appearance CSF Color CSF WBC CSF RBC CSF Neutrophils CSF Appearance (b) CSF Glucose CSF Total Protein CSF C.neoform/gat PCR CSF CMV DNA (PCR) CSF Enterovirus (PCR) CSF E. coli K1 (PCR) CSF H. influenzae (PCR) CSF HSV I (PCR) CSF HSV II (PCR) CSF HHV 6 (PCR) CSF L.monocytogenes PCR CSF N. meningitidis PCR CSF Parechovirus (PCR) CSF S. agalactiae (PCR) CSF S. pneumoniae (PCR) CSF VZV (PCR) Urine Opiates Screen Ur Buprenorphine Scrn Ur Oxycodone Screen Urine Methadone Screen Urine Fentanyl Screen Ur Barbiturates Screen Ur Phencyclidine Scrn Ur Amphetamines Screen U Benzodiazepines Scrn Urine Cocaine Screen U Marijuana (THC) Screen HIV 1&2 Ab/P24 Ag 4thGn Microbiology Microbiology Results: Microbiology 02/13/24 13:31 Gram Stain - Final Cerebrospinal Fluid CSF Examination - Final Fluid Description - Final CSF Culture - Preliminary No growth after 1 day Assessment and Plan (1) Orthostatic hypotension: Status: Acute (2) COVID-19: Status: Acute (3) Syncope and collapse: Status: Acute Plan d2 23yo F with bipolar disorder presenting after syncopal episode; found to have fever, Covid-19, and orthostatic hypotension. Had left-sided facial droop by ED provider report but that has resolved. Overnight had chest pain atypical chest pain - Tn-I low but delta>50%; recheck in AM. No ischemic EKG changes and pain is clearly reproducible by palpation; suspect Tn-I change due to Covid-19 infection syncope likely due to orthostatic hypotension - orthostatic hypotension resolved but pt continues to be tachycrdic; continue IV fluids facial droop - has resolved; consult Neurology Covid-19 - droplet precautions; not hypoxic so no steroids bipolar disorder - continue home meds VTE ppx - SCDs dispo - eventually home In my clinical judgment, the patient requires continued inpatient hospitalization for the following reasons: tachycardia, IV fluids Total time managing care of this patient today: 45 minutes. Quality Stroke Does the patient have a stroke diagnosis?: No VTE Prior VTE?: No VTE Risk Level:: Medical - moderate - high VTE Device Contraindication: N/A - Device Ordered VTE Drug Contraindication: Treatment Not Indicated
[2024-02-14 13:03] LABS: Troponin-I High Sensitivity 7.3 ng/L (<3.5-17.0)
[2024-02-14] MEDS: Lidocaine 4 % Patch ADH..PATCH 1 PATCH TRANSDERMA (14:28)
--- NOTE | 2024-02-14 18:13 | P.CNNE_ITS ---
History of Present Illness Data of Consult Service Date: 02/14/24 Primary Care Provider: Unknown Physician HPI Reason for consult: Covid, headache and facial droop This is a 23yo woman with h/ o bipolar disorder who went to the gym this morning around 4:30am but was only able to exercise on the treadmill for a few minutes because she started feeling unwell. She developed nausea and frontal headache and went home. Her sister heard her fall and found her passed out for about 45 seconds. She was shivering but did not have rhythmic jerking. She was confused and slurring her speech. No incontinence. EMS was called and brought her in. In the ED, she was noted to have a left-sided facial droop. She then developed a temperature of 102.5F. Blood cultures were drawn and she was given ceftriaxone and vancomycin, along with lorazepam and acetaminophen. CT of the head was normal, along with CT angio of the head and neck. Lumbar puncture was negative 0 WBCs and 0 RBCs. Covid-19 PCR was positive. Facial droop and headache have resolved completely. She denies any unilateral weakness, blurry vision, neck stiffness, cough, sore throat, or shortness of breath. Review of Systems 2 Review of Systems: Yes all other systems are reviewed and are negative [facility] Past Medical History Medical History Bipolar depression Family History Pertinent family history: no epilepsy/seizure Social History Social History Household Members: Family Housing: House Do you presently have visiting nurse or other home services: No Patient Tobacco Use Status: Never used Tobacco Meds Allergies Allergy/AdvReac Type Severity Reaction Status Date / Time Penicillins Allergy Unknown Unknown Verified 02/13/24 06:46 Active Medications: Current Medications Acetaminophen (Acetaminophen 325 Mg Tablet) 650 mg PO Q6H PRN PRN Reason: Pain, Mild (Pain Scale 1-3) Last Admin: 02/14/24 02:54 Dose: 650 mg Divalproex Sodium (Divalproex Sodium 250 Mg Tablet.) 250 mg PO DAILY [facility] Last Admin: 02/14/24 08:14 Dose: 250 mg Guaifenesin/Codeine Phosphate (Guaifen/Codeine Sf 200/20/10ml 10 Ml Liquid) 5 ml PO Q4H PRN PRN Reason: Cough Last Admin: 02/14/24 12:06 Dose: 5 ml Hydroxyzine HCl (Hydroxyzine Hcl 25 Mg Tablet) 25 mg PO BID PRN PRN Reason: Anxiety Sodium Chloride (Ns) 1,000 mls @ 100 mls/hr IVCONT .Q10H [facility] Last Admin: 02/14/24 14:34 Dose: 100 mls/hr Lidocaine (Lidocaine 4 % Patch Adh..Patch) 1 patch TRANSDERMA DAILY [facility]; Protocol Last Admin: 02/14/24 14:28 Dose: 1 patch Ondansetron HCl (Ondansetron Hcl 4 Mg/2 Ml Vial) 4 mg IVPUSH Q8H PRN PRN Reason: Nausea and Vomiting Home Medications ?Medication ?Instructions ?Recorded ?Confirmed ?Last Taken ?Type divalproex 250 mg tablet,delayed 250 mg PO DAILY 02/13/24 02/13/24 02/12/24 20:00 History release hydroxyzine HCl 25 mg tablet 25 mg PO BID PRN Anxiety 02/13/24 02/13/24 02/12/24 20:00 History Physical Exam 2 Vital Signs: Vital Signs: Last Vital Signs Temp 97.8 F 02/14/24 15:53 Pulse 94 02/14/24 15:53 Resp 16 02/14/24 15:53 BP 159/79 H 02/14/24 15:53 Pulse Ox 97 02/14/24 15:53 O2 Del Method Room Air 02/14/24 15:53 BMI result Body Mass Index 36.3 Neuro: Other: Normal neurological examination. No facial weakness or droop Results Labs 02/14/24 08:33 02/14/24 08:33 Labs: Short CBC 02/14/24 Range/Units 08:33 WBC 6.5 (4.8-10.8) X10*3/uL Hgb 10.9 L (12.0-16.0) g/dl Hct 33.0 L (37.0-47.0) % Plt Count 227 (160-400) X10*3/uL BMP 02/14/24 08:33 Sodium 137 Potassium 3.6 Chloride 109 H Carbon Dioxide 21 L BUN 4 L Creatinine 0.74 Calcium 8.1 L D Microbiology Microbiology Results: Microbiology 02/13/24 10:47 Blood - Venous Blood Culture - Preliminary No growth after 24 hours. 02/13/24 10:35 Blood - Venous Blood Culture - Preliminary No growth after 24 hours. 02/13/24 13:31 Cerebrospinal Fluid Gram Stain - Final 02/13/24 13:31 Cerebrospinal Fluid CSF Examination - Final 02/13/24 13:31 Cerebrospinal Fluid Fluid Description - Final 02/13/24 13:31 Cerebrospinal Fluid CSF Culture - Preliminary No growth after 1 day Assessment and Plan (1) Orthostatic hypotension: Status: Acute (2) COVID-19: Status: Acute Headaches appears to be related to Covid. She may have had some transient hypotension and exhaustion that lead to her collapse. There is no evidence of stroke or other neurological issues. Her CT, CTA and lumbar puncture are normal. All symptoms have resolved, except for her breathing related to Covid. No further neurological intervention is necessary. (3) Syncope and collapse: Status: Acute Plan d2 23yo F with bipolar disorder presenting after syncopal episode; found to have fever, Covid-19, and orthostatic hypotension. Had left-sided facial droop by ED provider report but that has resolved. Overnight had chest pain atypical chest pain - Tn-I low but delta>50%; recheck in AM. No ischemic EKG changes and pain is clearly reproducible by palpation; suspect Tn-I change due to Covid-19 infection syncope likely due to orthostatic hypotension - orthostatic hypotension resolved but pt continues to be tachycrdic; continue IV fluids facial droop - has resolved; consult Neurology Covid-19 - droplet precautions; not hypoxic so no steroids bipolar disorder - continue home meds VTE ppx - SCDs dispo - eventually home In my clinical judgment, the patient requires continued inpatient hospitalization for the following reasons: tachycardia, IV fluids Procedures Date of Service Date of Service: 02/14/24
[2024-02-15] VITALS: BP 130/70; PULSE 81; RESP 18; TEMP 37.4; O2SAT 96
[2024-02-15] MEDS: 0.9 % Sodium Chloride 1,000 ML 100 ML IVCONT ×2 (03:09→08:12)
[2024-02-15] MEDS: guaiFEN/Codeine SF 200/20/10ML 10 ML LIQUID 5 ML PO (03:14)
[2024-02-15 04:00] VITALS: BP 123/69; PULSE 99; RESP 20; TEMP 37.7; O2SAT 96
[2024-02-15] MEDS: Acetaminophen 325 MG TABLET 650 MG PO (06:02)
[2024-02-15 07:22] LABS: Hematocrit 35.9 % (37.0-47.0); Hemoglobin 11.6 g/dl (12.0-16.0); Mean Corpuscular HGB Conc 32.3 g/dl (31.0-35.0); Mean Corpuscular Volume 83.7 fL (80.0-98.0); Platelet Count 260 X10*3/uL (160-400); Red Blood Count 4.29 X10*6/uL (4.20-5.50); Red Cell Distribution Width 13.1 % (11.0-16.0); White Blood Count 9.5 X10*3/uL (4.8-10.8)
[2024-02-15 07:39] LABS: Anion Gap 12 (12-20); Blood Urea Nitrogen 4 mg/dL (9-16); Calcium 8.5 mg/dL (8.4-10.2); Carbon Dioxide 24 mmol/L (22-29); Chloride 104 mmol/L (96-108); Estimated Glomerular Filt Rate > 60; Glucose Random 108 mg/dL (60-115); Potassium 3.6 mmol/L (3.3-5.1); Sodium 136 mmol/L (135-145)
[2024-02-15 07:54] VITALS: BP 143/87; PULSE 83; RESP 20; TEMP 36.1; O2SAT 96
[2024-02-15] MEDS: Divalproex Sodium 250 MG TABLET.DR PO (08:04)
[2024-02-15] MEDS: Lidocaine 4 % Patch ADH..PATCH 1 PATCH TRANSDERMA (08:04)
--- NOTE | 2024-02-15 10:13 | PM.DS ---
DS: Providers Provider Date of Service: 02/15/24 Date of admission: 02/13/24 16:10 Date of discharge: 02/15/24 Primary care physician: Unknown Physician Consults: 02/13/24 16:28 Consult to Neurology Routine Consulting Provider: [facility] Reason for consultation: facial droop after syncope; has resolved; has Covid; LP negative DS: Diagnosis Discharge Diagnosis (1) Orthostatic hypotension: Status: Acute (2) COVID-19: Status: Acute (3) Syncope and collapse: Status: Acute (4) Atypical chest pain: Status: Acute DS: Summary Hospital Course Hospital Course: from my admission H+P, 02/13/24: 23yo F with bipolar disorder who went to the gym this morning around 4:30am but was only able to exercise on the treadmill for a few minutes because she started feeling unwell. She developed nausea and frontal headache and went home. Her sister heard her fall and found her passed out for about 45 seconds. She was shivering but did not have rhythmic jerking. She was confused and slurring her speech. No incontinence. EMS was called and brought her in. In the ED, she was noted to have a left-sided facial droop. The PA spoke to the neurologist who recommended ruling out SAH. She then developed a temperature of 102.5F. Blood cultures were drawn and she was given ceftriaxone and vancomycin, along with lorazepam and acetaminophen. CT of the head was normal, along with CT angio of the head and neck. Lumbar puncture was done by IR and returned 0 WBCs and 0 RBCs. Covid-19 PCR was positive. Facial droop and headache have resolved completely. She denies any unilateral weakness, blurry vision, neck stiffness, cough, sore throat, or shortness of breath. Orthostatic vital signs showed BP drop from 115/66 supine to 75/49 standing. 23yo F with bipolar disorder presenting after syncopal episode; found to have fever, Covid-19, and orthostatic hypotension. She was admitted to the telemetry unit on droplet isolation. She had left-sided facial droop by ED provider report but that resolved by the time of my exam and the neurologist's exam. Not thought to have had a stroke. She developed a cough with atypical chest pain [clearly reproducible by palpation]. She was given aggressive IV fluid hydration and orthostatic hypotension resolved. Syncope attributed to orthostasis, which was in turn due to dehydration from Covid-19 infection. She was never hypoxic so no steroids were given. Fever resolved and she was discharged home with lidocaine patches and cough syrup. Time Attestation Discharge Coordination Time (in mins): 35 Quality: Safe Use of Opioids Does Pt have an Active Cancer Diagnosis on the Problem List?: No Quality: Stroke Does the patient have a stroke diagnosis?: No Physical Exam Vital Signs: Vital Signs: Last Vital Signs Temp 97 F 02/15/24 07:54 Pulse 83 02/15/24 07:54 Resp 20 02/15/24 07:54 BP 143/87 H 02/15/24 07:54 Pulse Ox 96 02/15/24 07:54 O2 Del Method Room Air 02/15/24 07:54 BMI result Body Mass Index 36.3 Gen: in no acute distress HEENT: sclera anicteric, moist mucus membranes Neck: supple Lungs: clear to auscultation bilaterally Heart: regular rate and rhythm, no murmurs Abd: soft, non-tender, non-distended Ext: no edema Skin: warm/well-perfused Neuro: alert and oriented x3, no focal findings Psych: appropriate affect DS: Data Data Completed and Pending Completed studies during hospitalization [Text1]: Laboratory Results WBC 9.5 X10*3/uL (4.8-10.8) 02/15/24 06:55 RBC 4.29 X10*6/uL (4.20-5.50) 02/15/24 06:55 Hgb 11.6 g/dl (12.0-16.0) L 02/15/24 06:55 Hct 35.9 % (37.0-47.0) L 02/15/24 06:55 MCV 83.7 fL (80.0-98.0) 02/15/24 06:55 MCH 27.0 pg (27.0-33.0) 02/15/24 06:55 MCHC 32.3 g/dl (31.0-35.0) 02/15/24 06:55 RDW 13.1 % (11.0-16.0) 02/15/24 06:55 Plt Count 260 X10*3/uL (160-400) 02/15/24 06:55 MPV 10.0 fL (9.4-12.3) 02/15/24 06:55 Immature Gran % (Auto) 0.5 % (0.0-0.4) H 02/13/24 07:00 Neut % (Auto) 78.3 % (45-73) H 02/13/24 07:00 Lymph % (Auto) 12.8 % (20-40) L 02/13/24 07:00 [place] % (Auto) 6.9 % (2-11) 02/13/24 07:00 Eos % (Auto) 0.9 % (0-4) 02/13/24 07:00 Baso % (Auto) 0.6 % (0-2) 02/13/24 07:00 Lymph # (Auto) 0.8 X10*3/uL (1.2-4.9) L 02/13/24 07:00 [place] # (Auto) 0.4 X10*3/uL (0.1-1.2) 02/13/24 07:00 Eos # (Auto) 0.1 X10*3/uL (0.0-0.4) 02/13/24 07:00 Baso # (Auto) 0.0 X10*3/uL (0.0-0.2) 02/13/24 07:00 Abs Immat Gran (auto) 0.03 X10*3/uL (0.00-0.03) 02/13/24 07:00 Absolute Neuts (auto) 5.0 x10*3/uL (2.0-8.3) 02/13/24 07:00 Absolute Nucleated RBC 0.000 X10*3/uL (0.0-0.012) 02/15/24 06:55 Nucleated RBC % (auto) 0.0 /100WBC (0.0-0.2) 02/15/24 06:55 Whole Blood PT 12.5 sec (11.1-13.5) 02/13/24 07:34 Whole Blood INR 1.0 (0.9-1.1) 02/13/24 07:34 D-Dimer High Sensitivty 171 NG/ML 02/13/24 07:00 VBG pH 7.43 (7.32-7.43) 02/14/24 01:37 VBG pCO2 35 mmHg 02/14/24 01:37 VBG pO2 32 mmHg 02/14/24 01:37 VBG HCO3 23 mmol/L (22-26) 02/14/24 01:37 VBG O2 Saturation 67.0 % 02/14/24 01:37 VBG Base Excess 0.1 mmol/L 02/14/24 01:37 Sodium 136 mmol/L (135-145) 02/15/24 06:55 Potassium 3.6 mmol/L (3.3-5.1) 02/15/24 06:55 Chloride 104 mmol/L (96-108) 02/15/24 06:55 Carbon Dioxide 24 mmol/L (22-29) 02/15/24 06:55 Anion Gap 12 (12-20) 02/15/24 06:55 BUN 4 mg/dL (9-16) L 02/15/24 06:55 Creatinine 0.72 mg/dL (0.5-1.4) 02/15/24 06:55 Estim Creat Clear Calc 144.0 02/15/24 06:55 Estimated GFR > 60 02/15/24 06:55 POC Glucose 79 mg/dL (60-115) 02/13/24 07:33 Random Glucose 108 mg/dL (60-115) 02/15/24 06:55 Lactic Acid 1.5 mmol/L (0.5-2.0) 02/13/24 10:35 Calcium 8.5 mg/dL (8.4-10.2) 02/15/24 06:55 Total Bilirubin 0.4 mg/dL (0.0-1.0) 02/13/24 07:00 AST 23 U/L (5-31) 02/13/24 07:00 ALT 21 U/L (0-31) 02/13/24 07:00 Alkaline Phosphatase 85 U/L (39-117) 02/13/24 07:00 Total Creatine Kinase 153 U/L (26-140) H 02/13/24 07:00 Troponin I High Sens 7.3 ng/L (<3.5-17.0) 02/14/24 12:37 C-Reactive Protein 2.63 mg/dL (< or = 0.50) H 02/14/24 08:33 B-Natriuretic Peptide < 10 pg/mL (<100) 02/13/24 07:00 Total Protein 8.1 g/dL (6.5-8.0) H 02/13/24 07:00 Albumin 4.2 g/dL (3.5-5.0) 02/13/24 07:00 Beta HCG, Quant < 2 mIU/mL 02/13/24 07:00 Urine Color Yellow 02/13/24 17:41 Urine Appearance Clear 02/13/24 17:41 Urine pH 6.0 (5.0-9.0) 02/13/24 17:41 Ur Specific [place] 1.020 (1.005-1.025) 02/13/24 17:41 Urine Protein Negative mg/dL (Neg-Trace) 02/13/24 17:41 Urine Glucose (UA) Negative mg/dL (Negative) 02/13/24 17:41 Urine Ketones Negative mg/dL (Negative) 02/13/24 17:41 Urine Blood Negative (Negative) 02/13/24 17:41 Urine Nitrite Negative (Negative) 02/13/24 17:41 Ur Leukocyte Esterase Negative (Negative) 02/13/24 17:41 Urine Test NEGATIVE (NEGATIVE) 02/13/24 17:41 CSF Tube Number 1 02/13/24 13:31 CSF Tube Number 4 02/13/24 13:31 CSF Volume 3.0 ML 02/13/24 13:31 CSF Appearance CLEAR 02/13/24 13:31 CSF Color COLORLESS 02/13/24 13:31 CSF WBC 0 MM*3 02/13/24 13:31 CSF RBC 0 MM*3 02/13/24 13:31 CSF Neutrophils 1 % 02/13/24 13:31 CSF Appearance (b) Clear, Colorless 02/13/24 13:31 CSF Glucose 58 mg/dL 02/13/24 13:31 CSF Total Protein 19.9 mg/dL (15-45) 02/13/24 13:31 CSF C.neoform/gat PCR Not Detected (Not Detect.) 02/13/24 13:31 CSF CMV DNA (PCR) Not Detected (Not Detect.) 02/13/24 13:31 CSF Enterovirus (PCR) Not Detected (Not Detect.) 02/13/24 13:31 CSF E. coli K1 (PCR) Not Detected (Not Detect.) 02/13/24 13:31 CSF H. influenzae (PCR) Not Detected (Not Detect.) 02/13/24 13:31 CSF HSV I (PCR) Not Detected (Not Detect.) 02/13/24 13:31 CSF HSV II (PCR) Not Detected (Not Detect.) 02/13/24 13:31 CSF HHV 6 (PCR) Not Detected (Not Detect.) 02/13/24 13:31 CSF L.monocytogenes PCR Not Detected (Not Detect.) 02/13/24 13:31 CSF N. meningitidis PCR Not Detected (Not Detect.) 02/13/24 13:31 CSF Parechovirus (PCR) Not Detected (Not Detect.) 02/13/24 13:31 CSF S. agalactiae (PCR) Not Detected (Not Detect.) 02/13/24 13:31 CSF S. pneumoniae (PCR) Not Detected (Not Detect.) 02/13/24 13:31 CSF VZV (PCR) Not Detected (Not Detect.) 02/13/24 13:31 Urine Opiates Screen Not Detected (Not Detect) 02/13/24 17:41 Ur Buprenorphine Scrn Not Detected ng/mL (Not Detect) 02/13/24 17:41 Ur Oxycodone Screen Not Detected ng/mL (Not Detect) 02/13/24 17:41 Urine Methadone Screen Not Detected ng/mL (Not Detect) 02/13/24 17:41 Urine Fentanyl Screen Not Detected (Not Detect) 02/13/24 17:41 Ur Barbiturates Screen Not Detected (Not Detect) 02/13/24 17:41 Ur Phencyclidine Scrn Not Detected (Not Detect) 02/13/24 17:41 Ur Amphetamines Screen Not Detected (Not Detect) 02/13/24 17:41 U Benzodiazepines Scrn Not Detected (Not Detect) 02/13/24 17:41 Urine Cocaine Screen Not Detected (Not Detect) 02/13/24 17:41 U Marijuana (THC) Screen Not Detected (Not Detect) 02/13/24 17:41 HIV 1&2 Ab/P24 Ag 4thGn Nonreactive (Nonreactive) 02/13/24 16:07 Influenza Type A (PCR) NEGATIVE (Negative) 02/13/24 10:47 Influenza Type B (PCR) NEGATIVE (Negative) 02/13/24 10:47 RSV RNA Qual (PCR) NEGATIVE (Negative) 02/13/24 10:47 SARS-CoV-2 RNA (RT-PCR) POSITIVE (Negative) A 02/13/24 10:[address] 02/13/24 07:15 IMPRESSION: No acute intracranial pathology. This critical result was discussed with GURPREET Smalls, at 7:26 AM on . It was ascertained that the content and urgency of the report was understood at the time of direct communication. Head/Neck CTA 02/13/24 07:29 IMPRESSION: No acute imaging abnormalities. No evidence of carotid or vertebral artery stenosis. Also, no acute vascular pathology is identified within the head. There is no evidence of intracranial hemorrhage, mass or infarction. This critical result was discussed with GURPREET Smalls, at 7:26 AM on . It was ascertained that the content and urgency of the report was understood at the time of direct communication. Lumbar Puncture Fluoroscopy 02/13/24 13:45 IMPRESSION: Successful fluoroscopic lumbar puncture. Opening pressure is elevated at 33 cm H2O. This procedure was performed by Junior Diallo PA-C and supervised by Dr. Escobar. Chest X-Ray 02/14/24 02:35 IMPRESSION: Low lung volumes without definite acute findings. Microbiology 02/13/24 13:31 Cerebrospinal Fluid Gram Stain - Final 02/13/24 13:31 Cerebrospinal Fluid CSF Examination - Final 02/13/24 13:31 Cerebrospinal Fluid Fluid Description - Final 02/13/24 13:31 Cerebrospinal Fluid CSF Culture - Preliminary No growth after 2 days 02/13/24 10:47 Blood - Venous Blood Culture - Preliminary No growth after 24 hours. 02/13/24 10:35 Blood - Venous Blood Culture - Preliminary No growth after 24 hours. Discharge Plan Discharge Anticipated Discharge Date/Time: 02/15/24 10:06 Patient Disposition: Home, Self-Care Discharge Diagnosis: syncope due to orthostatic hypotension due to Covid-19 infection; atypical chest pain from coughing Referrals: Physician,Unknown J [Primary Care Provider] - 1 Week Discharge Medications: New lidocaine [Lidocaine Pain Relief] 4 % Adhesive Patch,Medicated 1 patch transdermal DAILY PRN (Reason: chest wall pain) Qty: 30 0RF Protocol: Apply to: Apply to: upper sternum dextromethorphan polistirex 30 mg/5 mL suspension,extended rel 12 hr 10 ml PO Q12H PRN (Reason: cough) Qty: 89 0RF Continued hydroxyzine HCl 25 mg tablet 25 mg PO BID PRN (Reason: Anxiety) divalproex 250 mg Tablet,Delayed Release (Dr/Ec) 250 mg PO DAILY Discharge Orders: Discharge Order (Routine); Ordered 02/15/24 Ordered By: Skip Mack Diet: Advance to usual diet Activity on Discharge: As tolerated Stand Alone Forms: Patient Portal Discharge page, Work/School Release Print Language: Omani Care Plan Goals: recovery from Covid Health Concerns: syncope due to orthostatic hypotension due to Covid-19 infection; atypical chest pain from coughing Plan of Treatment: drink plenty of fluids take acetaminophen [Tylenol] for pain and use lidocaine patch as needed as well; cough syrup as needed isolation per CDC guidelines Please follow up with your primary care doctor within 1 week. Return to the hospital if you experience recurrent or worsening symptoms. Assessment: See Discharge Summary.
--- NOTE | 2024-02-15 10:32 | MHC.CM.PN ---
PT ADMITTED WITH COVID-19 CM ATTEMPTED TO CONTACT PT VIA CELL PHONE NUMBER ON FILE [phone] VM MESSAGE LEFT REQUESTING A RETURN CALL TO [facility] [employer] EXPLANATION OF OBSERVATION STATUS ALSO LEFT ON VM PER EMR, PT IS FULLY INDEPENDENT AND WORKS SHE WILL BE DISCHARGED HOME TODAY WITH NO SERVICES
[2024-02-19 12:52] LABS: Lyme IgG CSF Immunoblot NO BANDS DETECTED; Lyme IgM CSF Immunoblot NO BANDS DETECTED
== END 2024-02-15 11:46 | disposition home or self-care (01) ==
LOC: HO.ED 15:45 → HO.EDOVER 16:17 → HO.IMC 02-14 00:13
PROVIDERS: Physician Assistant; Physician Assistant Surgical; Student in an Organized Health Care Education/Training Program; Admitting Provider Family Medicine; Emergency Provider Emergency Medicine Emergency Medical Services; Visit Provider Family Medicine
DX: U07.1 COVID-19 (principal); I95.1 Orthostatic hypotension; R07.89 Other chest pain; R11.0 Nausea; R51.9 Headache, unspecified; R53.1 Weakness; R47.81 Slurred speech; R29.810 Facial weakness; R06.02 Shortness of breath; R05.9 Cough, unspecified; R00.2 Palpitations; R50.9 Fever, unspecified
CPT/HCPCS: 0241U; 36415; 62328; 70450; 70496; 70498; 71045; 80048; 80053; 80307; 81003; 81025; 82550; 82803; 82945; 82947; 83605; 83880; 84157; 84484; 84702; 85025; 85027; 85379; 85610; 86140; 86617; 87015; 87040; 87070; 87205; 87389; 87483; 89051; 92950; 93005; 96361; 96365; 96366; 96367; 96368; 99222; 99285; J0696; J3370; Q9967

== ENCOUNTER → 2024-02-13 06:50 | Outpatient (BNV) | payer BC, SELFPAY | PROVIDERS: Emergency Provider Emergency Medicine Emergency Medical Services; Visit Provider Internal Medicine Cardiovascular Disease | DX: R55 Syncope and collapse (principal) | CPT/HCPCS: 93010 ==

== ENCOUNTER → 2024-02-13 07:38 | Outpatient (BNV) | payer BC, SELFPAY | PROVIDERS: Emergency Provider Emergency Medicine Emergency Medical Services; Visit Provider Physician Assistant Surgical | DX: R50.9 Fever, unspecified (principal); R51.9 Headache, unspecified | CPT/HCPCS: 62328 ==

== ENCOUNTER 2024-02-13 16:10 | Outpatient (BNV) | payer BC, SELFPAY | END 2024-02-14 01:40 | PROVIDERS: Admitting Provider Family Medicine; Emergency Provider Emergency Medicine Emergency Medical Services; Visit Provider Internal Medicine Cardiovascular Disease | DX: R07.9 Chest pain, unspecified (principal) | CPT/HCPCS: 93010 ==

== ENCOUNTER → 2024-02-13 16:10 | Outpatient (BNV) | payer BC, SELFPAY | PROVIDERS: Admitting Provider Family Medicine; Emergency Provider Emergency Medicine Emergency Medical Services; Visit Provider Family Medicine | DX: I95.1 Orthostatic hypotension (principal); U07.1 COVID-19; R55 Syncope and collapse | CPT/HCPCS: 99222; 99232; 99239 ==

== ENCOUNTER → 2024-02-13 16:10 | Outpatient (BNV) | payer BC, SELFPAY | PROVIDERS: Admitting Provider Family Medicine; Emergency Provider Emergency Medicine Emergency Medical Services; Visit Provider Psychiatry & Neurology Neurology | DX: I95.1 Orthostatic hypotension (principal); U07.1 COVID-19 | CPT/HCPCS: 99222 ==

== ENCOUNTER 2024-05-06 05:26 | Emergency (ER) | payer BC, SELFPAY ==
--- NOTE | ~2024-05-06 | CT_ITS ---
EXAMINATION: CT ABDOMEN AND PELVIS WITH CONTRAST CLINICAL INFORMATION: Abdominal pain COMPARISON: None available. TECHNIQUE: Multidetector volumetric images were obtained from the superior aspect of the liver through the pubic symphysis following administration 85 mL of Omnipaque 350 intravenous contrast. Sagittal and coronal reformatted images were obtained on the technologist's workstation. Oral contrast: No This CT examination was performed using dose optimization techniques as appropriate, variously including the following: *Automated exposure control *Adjustment of mA and/or kV according to patient size (this includes techniques or standardized protocols for targeted exams where dose is matched to indication/reason for exam; i.e. extremities or head) *Use of iterative reconstruction technique DLP: 802 mGy-cm FINDINGS: LUNG BASES: The visualized lung bases are unremarkable. LIVER, GALLBLADDER, AND BILIARY TREE: The liver is normal in size, shape, and attenuation. No focal hepatic lesion or biliary ductal dilatation is present. The gallbladder is unremarkable with no evidence of radiopaque gallstones, gallbladder wall thickening, or obvious pericholecystic inflammatory changes. PANCREAS: Unremarkable. SPLEEN: Unremarkable. ADRENAL GLANDS: Unremarkable. KIDNEYS AND URETERS: The kidneys are normal in size, shape, and attenuation. No hydronephrosis, hydroureter, or calculi seen. No perinephric stranding. BLADDER: Unremarkable. GASTROINTESTINAL TRACT: Stomach and small bowel are nondilated. There is diffuse wall thickening involving the descending and sigmoid colon. No pericolonic inflammatory changes. The appendix is top normal in caliber. No periappendiceal inflammatory changes. Curvilinear hyperdensity at the base of the cecum. ABDOMINAL WALL: No significant hernia is appreciated. LYMPH NODES: No abdominal or pelvic lymphadenopathy. VASCULAR: The abdominal aorta is normal in caliber. PELVIC VISCERA: The uterus is anteverted and appears unremarkable. Prominent bilateral ovaries in close proximity to each other in the midline. OSSEOUS STRUCTURES: No acute or suspicious osseous abnormality. CT/CT abdomen pelvis w IV con IMPRESSION: Diffuse wall thickening involving the descending and sigmoid colon may be exaggerated by underdistended state. No surrounding pericolonic inflammatory changes. Correlate for any clinical signs of colitis Prominent bilateral ovaries in close proximity to each other in the midline. Correlate for any clinical signs of endometriosis. Electronically signed by: Dannie Romano MD 05/06/2024 10:42 AM EDT RP
[2024-05-06 05:28] VITALS: BP 151/93; PULSE 85; RESP 16; TEMP 36.4; O2SAT 99; BMI 35.8
--- NOTE | 2024-05-06 06:43 | ED_ITS ---
HPI - General Adult General Chief complaint: Nausea/Vomiting/Diarrhea Stated complaint: abd pain Time Seen by Provider: 05/06/24 06:35 Source: patient Mode of arrival: ambulatory Limitations: no limitations History of Present Illness ED Provider: Mckenna Oneal PA-C HPI narrative: Patient is a 23 year old assigned female at with no reported medical history presenting to the emergency department today with diarrhea. Patient states that over the last week she has had worsening diarrhea. Patient states that it doesn't matter what she eats or when, her diarrhea is green-dulce in color but not foul smelling. Patient denies any dizziness, lightheadedness, abdominal pain, nausea, vomiting, fever, chills, blurry vision, double vision, loss of vision, chest pain, difficulty breathing, shortness of breath, back pain, night sweats, pain with urination, increased urinary frequency, increased urinary urgency, blood in her urine or stool, syncope or a near syncopal episode, recent trauma or falls, bowel incontinence, bladder incontinence, or any other complaints at this time. Onset (ago): week(s) (1) Relieving factors: none Exacerbating factors: none Associated symptoms: denies other symptoms Treatments prior to arrival: none Related Data Home Medications ?Medication ?Instructions ?Recorded ?Confirmed divalproex 250 mg tablet,delayed 250 mg PO DAILY 02/13/24 02/13/24 release hydroxyzine HCl 25 mg tablet 25 mg PO BID PRN Anxiety 02/13/24 02/13/24 Previous Rx's ?Medication ?Instructions ?Recorded dextromethorphan polistirex 30 10 ml PO Q12H PRN cough #89 mL 02/15/24 mg/5 mL oral susp ext.release 12hr lidocaine 4 % topical patch 1 patch transdermal DAILY PRN 02/15/24 (Lidocaine Pain Relief) chest wall pain #30 ea Allergies Allergy/AdvReac Type Severity Reaction Status Date / Time Penicillins Allergy Unknown Unknown Verified 05/06/24 05:30 Review of Systems 2 Constitutional: Constitutional: Reports no additional constitutional complaints, Denies chills, Denies fever(s) and Denies night sweats Eyes: Eyes: Reports no additional eye complaints, Denies blurry vision, Denies change in vision, Denies diplopia, Denies eye discharge, Denies loss of vision and Denies eye pain ENT: Denies dizziness Cardiovascular: Cardiovascular: Reports no additional cardiovascular complaints, Denies chest pain, Denies lightheadedness, Denies Loss of Consciousness and Denies dyspnea Respiratory: Respiratory: Reports no additional respiratory complaints and Denies dyspnea Gastrointestinal: Gastrointestinal: Reports no additional gastrointestinal complaints, Denies abdominal pain, Denies melena, Denies hematochezia, Reports change in bowel habits, Reports change in stool character and Reports diarrhea Genitourinary: Genitourinary: Denies hematuria, Denies urinary frequency, Denies dysuria, Denies urinary incontinence, Denies urinary hesitancy and Denies urinary urgency Musculoskeletal: Musculoskeletal: Reports no additional musculoskeletal complaints, Denies numbness and Denies tingling Neurologic: Denies dizziness, Denies loss of vision, Denies numbness and Denies tingling Psychiatric: Psychiatric: Reports no additional psychiatric complaints Endocrine: Endocrine: Reports no additional endocrine complaints Hematologic/Lymphatic: Hematologic/Lymphatic: Reports no additional hematologic/lymphatic complaints Allergic/Immunologic: Allergic/Immunologic: Reports no additional allergic/immunologic complaints PMFSH Past Medical History Attestation statement: The following information was validated with the patient. Source: old records reviewed and nursing notes reviewed Medical History Bipolar depression Social History Social History Household Members: Family Housing: House Do you presently have visiting nurse or other home services: No Patient Tobacco Use Status: Never used Tobacco Advance Directives: No Advance Directives Information Provided: Yes Do you have a plan to hurt others: No Plan service: No Physical Exam ED Vital Signs: Vital Signs - 24 hr 05/06/24 05:28 05/06/24 08:00 05/06/24 11:15 Temperature 97.5 F 97.7 F 97.7 F Pulse Rate 85 77 66 Respiratory Rate 16 16 Blood Pressure 151/93 H 119/98 H 137/79 Pulse Oximetry 99 99 99 Oxygen Delivery Method Room Air Room Air Room Air BMI result Body Mass Index 35.8 Const General: cooperative, no acute distress, alert and awake Nutritional Appearance: well nourished Orientation/consciousness: patient oriented x3 Limitations: no limitations HENMT Head: Yes normal to inspection and Yes atraumatic Ears: hearing grossly normal bilaterally and external ears normal General nose exam: Normal external nose present, no nasal discharge noted and no epistaxis Face and sinus: Yes normal facial exam, No abrasion and No laceration Mouth: Normal oral and palatal mucosa present, no drooling and no muffled voice Eyes General: appearance normal, both eyes and all related structures Periorbital: periorbital findings normal Eyelids: Yes eyelids normal Conjunctivae: conjunctivae normal Pupils: Equal, round and reactive pupils present EOM: EOMs intact bilaterally Neck Neck: Yes normal visual inspection, Yes full ROM and Yes no lymphadenopathy Chest Chest palpation & inspection: normal inspection of the chest Resp Effort & Inspection: normal respiratory effort and able to speak in complete sentences GI Inspection: Yes normal to inspection Palpation (GI): Soft to palpation, not firm, nontender and no guarding Neuro General: patient oriented x3 and moves all extremities Cranial nerves: Yes Equal, round and reactive pupils present Cognition (Neuro): normal cognition Extrem General: Yes normal to inspection, Yes full ROM and Yes capillary refill normal Psych Appearance: grossly normal Mental Status: mental status grossly normal Affect: normal affect Attitude: cooperative Thought process: Normal thought process present Thought content: Normal thought content present Insight: Good insight present (Psych) Medications Administered Discontinued Medications Generic Name Dose Route Start Last Admin Trade Name Freq PRN Reason Stop Dose Admin Sodium Chloride 1,000 mls @ 999 mls/hr 05/06/24 07:30 05/06/24 08:32 Ns IV 05/06/24 08:30 999 mls/hr .Q1H1M ROBERT Administration Iohexol 100 ml 05/06/24 09:12 05/06/24 09:13 Iohexol 350 Mg/Ml 100 Ml Infus..Btl IV 05/06/24 09:13 85 ml ONCE ONE Administration Medical Decision Making Medical Decision Making [facility] Narrative: Patient is a 23 year old assigned female at with no reported medical history presenting to the emergency department today with diarrhea. Patient's physical exam was unremarkable. Patient's blood work was unremarkable. Patient's urine showed no acute process. Patient's CT abdomen/pelvis showed colitis. I explained my physical exam findings as well as all test results to the patient. I answered all questions asked by the patient. I stressed the importance of the patient taking her medication as directed (either prescribed or as the over the counter packaging recommends). I stressed the importance of the patient following up with her primary care provider and a GI specialist. I stressed the importance of the patient returning to the emergency department immediately if her symptoms were to worsen or if she were to develop any dizziness, shortness of breath, difficulty breathing, chest pain, blurry vision, loss of vision, nausea, vomiting, abdominal pain, fever, chills, back pain, or any other complaints. Patient verbalized agreement and understanding with this treatment plan and discharge. Differential Diagnosis Differential Diagnoses: The differential diagnosis associated with the presentation includes Colitis Abdominal pain Diarrhea Admission/Observation Consideration of admission/observation: Escalation of care including admission/observation considered Patient would have been admitted to the hospital had her work up had any findings where hospital admission was appropriate and her clinical presentation warranted hospital admission. Lab Data [facility] Lab Attestation statement: I reviewed the patient's lab results. My interpretation of these results are in the [facility] Rationale portion of this note. 05/06/24 08:07 05/06/24 08:07 Labs: Lab Results 05/06/24 05/06/24 Range/Units 08:07 09:53 WBC 7.7 (4.8-10.8) X10*3/uL RBC 4.94 (4.20-5.50) X10*6/uL Hgb 13.0 (12.0-16.0) g/dl Hct 40.3 (37.0-47.0) % MCV 81.6 (80.0-98.0) fL MCH 26.3 L (27.0-33.0) pg MCHC 32.3 (31.0-35.0) g/dl RDW 13.0 (11.0-16.0) % Plt Count 331 D (160-400) X10*3/uL MPV 10.0 (9.4-12.3) fL Immature Gran % (Auto) 0.3 (0.0-0.4) % Neut % (Auto) 57.5 (45-73) % Lymph % (Auto) 30.8 (20-40) % [place] % (Auto) 8.5 (2-11) % Eos % (Auto) 2.1 (0-4) % Baso % (Auto) 0.8 (0-2) % Lymph # (Auto) 2.4 (1.2-4.9) X10*3/uL [place] # (Auto) 0.7 (0.1-1.2) X10*3/uL Eos # (Auto) 0.2 (0.0-0.4) X10*3/uL Baso # (Auto) 0.1 (0.0-0.2) X10*3/uL Abs Immat Gran (auto) 0.02 (0.00-0.03) X10*3/uL Absolute Neuts (auto) 4.4 (2.0-8.3) x10*3/uL Absolute Nucleated RBC 0.000 (0.0-0.012) X10*3/uL Nucleated RBC % (auto) 0.0 (0.0-0.2) /100WBC ESR 14 (0-20) MM/HR Sodium 139 (135-145) mmol/L Potassium 4.2 (3.3-5.1) mmol/L Chloride 105 (96-108) mmol/L Carbon Dioxide 25 (22-29) mmol/L Anion Gap 13 (12-20) BUN 13 (9-16) mg/dL Creatinine 0.77 (0.5-1.4) mg/dL Estim Creat Clear Calc 129.0 Estimated GFR > 60 Random Glucose 99 (60-115) mg/dL Calcium 10.0 D (8.4-10.2) mg/dL Magnesium 1.8 (1.6-2.6) mg/dL Total Bilirubin 0.3 (0.0-1.0) mg/dL AST 24 (5-31) U/L ALT 33 H (0-31) U/L Alkaline Phosphatase 88 (39-117) U/L C-Reactive Protein 0.72 H (< or = 0.50) mg/dL Total Protein 8.5 H (6.5-8.0) g/dL Albumin 4.6 (3.5-5.0) g/dL TSH 3.12 (0.32-4.0) uIU/mL Beta HCG, Quant < 2 mIU/mL Urine Color Yellow Urine Appearance Clear Urine pH 6.0 (5.0-9.0) Ur Specific [place] >= 1.030 H (1.005-1.025) Urine Protein Negative (Neg-Trace) mg/dL Urine Glucose (UA) Negative (Negative) mg/dL Urine Ketones Negative (Negative) mg/dL Urine Blood Negative (Negative) Urine Nitrite Negative (Negative) Ur Leukocyte Esterase Negative (Negative) Influenza Type A (PCR) NEGATIVE (Negative) Influenza Type B (PCR) NEGATIVE (Negative) RSV RNA Qual (PCR) NEGATIVE (Negative) SARS-CoV-2 RNA (RT-PCR) NEGATIVE (Negative) Independent Interpretation I performed an independent interpretation of an: CT Scan Interpretation: My interpretation is in agreement with the radiologist's impression of this imaging study. - EXAMINATION: CT ABDOMEN AND PELVIS WITH CONTRAST CLINICAL INFORMATION: Abdominal pain COMPARISON: None available. TECHNIQUE: Multidetector volumetric images were obtained from the superior aspect of the liver through the pubic symphysis following administration 85 mL of Omnipaque 350 intravenous contrast. Sagittal and coronal reformatted images were obtained on the technologist's workstation. Oral contrast: No This CT examination was performed using dose optimization techniques as appropriate, variously including the following: *Automated exposure control *Adjustment of mA and/or kV according to patient size (this includes techniques or standardized protocols for targeted exams where dose is matched to indication/reason for exam; i.e. extremities or head) *Use of iterative reconstruction technique DLP: 802 mGy-cm FINDINGS: LUNG BASES: The visualized lung bases are unremarkable. LIVER, GALLBLADDER, AND BILIARY TREE: The liver is normal in size, shape, and attenuation. No focal hepatic lesion or biliary ductal dilatation is present. The gallbladder is unremarkable with no evidence of radiopaque gallstones, gallbladder wall thickening, or obvious pericholecystic inflammatory changes. PANCREAS: Unremarkable. SPLEEN: Unremarkable. ADRENAL GLANDS: Unremarkable. KIDNEYS AND URETERS: The kidneys are normal in size, shape, and attenuation. No hydronephrosis, hydroureter, or calculi seen. No perinephric stranding. BLADDER: Unremarkable. GASTROINTESTINAL TRACT: Stomach and small bowel are nondilated. There is diffuse wall thickening involving the descending and sigmoid colon. No pericolonic inflammatory changes. The appendix is top normal in caliber. No periappendiceal inflammatory changes. Curvilinear hyperdensity at the base of the cecum. ABDOMINAL WALL: No significant hernia is appreciated. LYMPH NODES: No abdominal or pelvic lymphadenopathy. VASCULAR: The abdominal aorta is normal in caliber. PELVIC VISCERA: The uterus is anteverted and appears unremarkable. Prominent bilateral ovaries in close proximity to each other in the midline. OSSEOUS STRUCTURES: No acute or suspicious osseous abnormality. CT/CT abdomen pelvis w IV con IMPRESSION: Diffuse wall thickening involving the descending and sigmoid colon may be exaggerated by underdistended state. No surrounding pericolonic inflammatory changes. Correlate for any clinical signs of colitis Prominent bilateral ovaries in close proximity to each other in the midline. Correlate for any clinical signs of endometriosis. Electronically signed by: Dannie Romano MD 05/06/2024 10:42 AM EDT Dictated By: Dannie Romano Signed By: Electronically signed by Dannie Romano 05/06/24 1042 Radiology Impression Discussion of test interpretation with radiology: I have reviewed the radiologist's reading. Discharge Plan Discharge Clinical Impression: Colitis Patient Disposition: Home, Self-Care Instructions: Colitis (ED) Additional Instructions: Follow up with your primary care provider. Return to the emergency department immediately if your symptoms worsen or if you develop any dizziness, shortness of breath, difficulty breathing, chest pain, blurry vision, loss of vision, nausea, vomiting, abdominal pain, fever, chills, back pain, or any other complaints. Prescriptions: No Action hydroxyzine HCl 25 mg tablet 25 mg PO BID PRN (Reason: Anxiety) divalproex 250 mg Tablet,Delayed Release (Dr/Ec) 250 mg PO DAILY lidocaine [Lidocaine Pain Relief] 4 % Adhesive Patch,Medicated 1 patch transdermal DAILY PRN (Reason: chest wall pain) Qty: 30 0RF Protocol: Apply to: Apply to: upper sternum dextromethorphan polistirex 30 mg/5 mL suspension,extended rel 12 hr 10 ml PO Q12H PRN (Reason: cough) Qty: 89 0RF Referrals: [facility] [Provider Group] (Call to establish and follow up with a primary care provider. If you already have a primary care provider, please follow up with them.) [facility] [Provider Group] (Call to establish and follow up with a primary care provider. If you already have a primary care provider, please follow up with them.) [facility] [Provider Group] (Call to establish and follow up with a primary care provider. If you already have a primary care provider, please follow up with them.) Stand Alone Forms: Work/School Release Interventions: ED Discharge Assessment Last Done: 05/06/24 11:15 Discharge Date/Time: 05/06/24 11:16 Print Language: Togolese
[2024-05-06 08:00] VITALS: BP 119/98; PULSE 77; TEMP 36.5; O2SAT 99
--- NOTE | 2024-05-06 08:12 | PC.NURSE ---
20g IV access established in left AC. Positional, but functional IV. Labs drawn and sent for analysis. Awaiting results.
[2024-05-06 08:19] LABS: MANUAL DIFF FLAG NO
[2024-05-06 08:24] LABS: Basophils Absolute Auto 0.1 X10*3/uL (0.0-0.2); Basophils Percent Auto 0.8 % (0-2); Eosinophils Absolute Auto 0.2 X10*3/uL (0.0-0.4); Eosinophils Percent Auto 2.1 % (0-4); Hematocrit 40.3 % (37.0-47.0); Imm Gran Abs Auto 0.02 X10*3/uL (0.00-0.03); Imm Gran Pct Auto 0.3 % (0.0-0.4); Lymphocytes Absolute Auto 2.4 X10*3/uL (1.2-4.9); Lymphocytes Percent Auto 30.8 % (20-40); Mean Corpuscular HGB Conc 32.3 g/dl (31.0-35.0); Mean Corpuscular Hemoglobin 26.3 pg (27.0-33.0); Mean Corpuscular Volume 81.6 fL (80.0-98.0); Monocytes Absolute Auto 0.7 X10*3/uL (0.1-1.2); Monocytes Percent Auto 8.5 % (2-11); Neutrophils Absolute Auto 4.4 x10*3/uL (2.0-8.3); Neutrophils Percent Auto 57.5 % (45-73); Platelet Count 331 X10*3/uL (160-400); Red Blood Count 4.94 X10*6/uL (4.20-5.50); White Blood Count 7.7 X10*3/uL (4.8-10.8)
[2024-05-06] MEDS: 0.9 % Sodium Chloride 1,000 ML 999 ML IV (08:32)
[2024-05-06 08:41] LABS: Alanine Aminotransferase 33 U/L (0-31); Albumin Level 4.6 g/dL (3.5-5.0); Alkaline Phosphatase 88 U/L (39-117); Anion Gap 13 (12-20); Aspartate Amino Transferase 24 U/L (5-31); Bilirubin Total 0.3 mg/dL (0.0-1.0); Blood Urea Nitrogen 13 mg/dL (9-16); C Reactive Protein 0.72 mg/dL (< or = 0.50); Carbon Dioxide 25 mmol/L (22-29); Chloride 105 mmol/L (96-108); Estimated Glomerular Filt Rate > 60; Glucose Random 99 mg/dL (60-115); Magnesium 1.8 mg/dL (1.6-2.6); Potassium 4.2 mmol/L (3.3-5.1); Sodium 139 mmol/L (135-145); Total Protein 8.5 g/dL (6.5-8.0)
[2024-05-06 08:56] LABS: HCG Quantitative < 2 mIU/mL; TSH reflex Free T4 3.12 uIU/mL (0.32-4.0)
[2024-05-06 08:58] LABS: Influenza A PCR NEGATIVE (Negative); Influenza B PCR NEGATIVE (Negative); Resp Syncy Virus RNA Qual PCR NEGATIVE (Negative); SARS COV2 PCR INHOUSE NEGATIVE (Negative)
[2024-05-06 09:05] LABS: Erythrocyte Sedimentation Rate 14 MM/HR (0-20)
[2024-05-06] MEDS: iohexoL 350 MG/ML 100 ML INFUS..BTL IV (09:13)
--- NOTE | 2024-05-06 09:57 | PC.NURSE ---
Urine specimen collected and sent for analysis. Awaiting results.
[2024-05-06 09:59] LABS: Appearance Urine Clear; Color Urine Yellow; Glucose Urine UA Negative (Negative); Leukocyte Esterase Urine Negative (Negative); Nitrite Urine Negative (Negative); Specific Gravity - Urine >= 1.030 (1.005-1.025); Urine Blood Negative (Negative); Urine Ketones Negative (Negative); Urine Protein Negative (Neg-Trace)
[2024-05-06 11:15] VITALS: BP 137/79; PULSE 66; RESP 16; TEMP 36.5; O2SAT 99
== END 2024-05-06 11:16 | disposition home or self-care (01) ==
PROVIDERS: Physician Assistant Medical; Emergency Provider Emergency Medicine; PCP Pediatrics
DX: K52.9 Noninfective gastroenteritis and colitis, unspecified (principal); R11.2 Nausea with vomiting, unspecified; R10.2 Pelvic and perineal pain; Z03.818 Encounter for observation for suspected exposure to other biological agents ruled out; Z79.899 Other long term (current) drug therapy
CPT/HCPCS: 0241U; 36415; 74177; 80053; 81003; 83735; 84443; 84702; 85025; 85652; 86140; 99284; Q9967

== ENCOUNTER 2024-05-18 06:29 | Emergency (ER) | payer BC, SELFPAY ==
[2024-05-18 06:40] VITALS: BP 144/97; PULSE 81; RESP 14; TEMP 36.4; O2SAT 98; BMI 33.3
--- NOTE | 2024-05-18 06:55 | ED.GENADULT ---
HPI - General Adult General Chief complaint: Nausea/Vomiting/Diarrhea Stated complaint: gen med Time Seen by Provider: 05/18/24 06:41 Source: patient Mode of arrival: ambulatory Limitations: no limitations History of Present Illness ED Provider: Mckenna Oneal PA-C HPI narrative: Patient is a 23 year old assigned female at with no reported medical history presenting to the emergency department today with diarrhea. Patient states that over the last 5 weeks she has had worsening diarrhea. Patient states that it doesn't matter what she eats or when, her diarrhea is green-dulce in color but not foul smelling. Patient states that she was seen here on 05/06/2024 when she had a full work up, including CT scan, that showed colitis but nothing else. Patient states that she has not been taking any imodium. Patient denies any dizziness, lightheadedness, abdominal pain, nausea, vomiting, fever, chills, blurry vision, double vision, loss of vision, chest pain, difficulty breathing, shortness of breath, back pain, night sweats, pain with urination, increased urinary frequency, increased urinary urgency, blood in her urine or stool, syncope or a near syncopal episode, recent trauma or falls, bowel incontinence, bladder incontinence, or any other complaints at this time. Onset (ago): week(s) (5) Relieving factors: none Exacerbating factors: none Associated symptoms: denies other symptoms Treatments prior to arrival: none Related Data Home Medications ?Medication ?Instructions ?Recorded ?Confirmed divalproex 250 mg tablet,delayed 250 mg PO DAILY 02/13/24 02/13/24 release hydroxyzine HCl 25 mg tablet 25 mg PO BID PRN Anxiety 02/13/24 02/13/24 Previous Rx's ?Medication ?Instructions ?Recorded dextromethorphan polistirex 30 10 ml PO Q12H PRN cough #89 mL 02/15/24 mg/5 mL oral susp ext.release 12hr lidocaine 4 % topical patch 1 patch transdermal DAILY PRN 02/15/24 (Lidocaine Pain Relief) chest wall pain #30 ea Allergies Allergy/AdvReac Type Severity Reaction Status Date / Time Penicillins Allergy Unknown Unknown Verified 05/18/24 06:43 Review of Systems Constitutional: Constitutional: Reports no additional constitutional complaints, Denies chills, Denies fever(s) and Denies night sweats Eyes: Eyes: Reports no additional eye complaints, Denies blurry vision, Denies change in vision, Denies diplopia, Denies eye discharge, Denies loss of vision and Denies eye pain ENT: Denies dizziness Cardiovascular: Cardiovascular: Reports no additional cardiovascular complaints, Denies chest pain, Denies lightheadedness, Denies Loss of Consciousness and Denies dyspnea Respiratory: Respiratory: Reports no additional respiratory complaints and Denies dyspnea Gastrointestinal: Gastrointestinal: Reports no additional gastrointestinal complaints, Denies abdominal pain, Denies melena, Denies hematochezia, Denies change in bowel habits, Denies change in stool character and Reports diarrhea Genitourinary: Genitourinary: Denies hematuria, Denies urinary frequency, Denies dysuria, Denies urinary incontinence, Denies urinary hesitancy and Denies urinary urgency Musculoskeletal: Musculoskeletal: Reports no additional musculoskeletal complaints, Denies numbness and Denies tingling Neurologic: Denies dizziness, Denies loss of vision, Denies numbness and Denies tingling Psychiatric: Psychiatric: Reports no additional psychiatric complaints Endocrine: Endocrine: Reports no additional endocrine complaints Hematologic/Lymphatic: Hematologic/Lymphatic: Reports no additional hematologic/lymphatic complaints Allergic/Immunologic: Allergic/Immunologic: Reports no additional allergic/immunologic complaints [facility] Past Medical History Attestation statement: The following information was validated with the patient. Source: old records reviewed and nursing notes reviewed Medical History Bipolar depression Social History Social History Household Members: Family Housing: House Do you presently have visiting nurse or other home services: No Patient Tobacco Use Status: Never used Tobacco Smoked in Last 30 Days: No Use of substances other than those prescribed or required for medical reasons: Yes Substance Use Type: Marijuana Advance Directives: No Advance Directives Information Provided: No Do you have a plan to hurt others: No Plan Patient : No service: No Physical Exam ED Vital Signs: Vital Signs - 24 hr 05/18/24 06:40 05/18/24 08:38 05/18/24 09:08 Temperature 97.6 F 97.9 F 97.9 F Pulse Rate 81 71 71 Respiratory Rate 14 16 16 Blood Pressure 144/97 H 134/75 134/75 Pulse Oximetry 98 98 98 Oxygen Delivery Method Room Air Room Air Room Air BMI result Body Mass Index 33.3 Const General: cooperative, no acute distress, alert and awake Nutritional Appearance: well nourished Orientation/consciousness: patient oriented x3 Limitations: no limitations HENMT Head: Yes normal to inspection and Yes atraumatic Ears: hearing grossly normal bilaterally and external ears normal General nose exam: Normal external nose present, no nasal discharge noted and no epistaxis Face and sinus: Yes normal facial exam, No abrasion and No laceration Mouth: Normal oral and palatal mucosa present, no drooling and no muffled voice Eyes General: appearance normal, both eyes and all related structures Periorbital: periorbital findings normal Eyelids: Yes eyelids normal Conjunctivae: conjunctivae normal Pupils: Equal, round and reactive pupils present EOM: EOMs intact bilaterally Neck Neck: Yes normal visual inspection, Yes full ROM and Yes no lymphadenopathy Chest Chest palpation & inspection: normal inspection of the chest Resp Effort & Inspection: normal respiratory effort and able to speak in complete sentences GI Inspection: Yes normal to inspection Neuro General: patient oriented x3 and moves all extremities Cranial nerves: Yes Equal, round and reactive pupils present Cognition (Neuro): normal cognition Extrem General: Yes normal to inspection, Yes full ROM and Yes capillary refill normal Psych Appearance: grossly normal Mental Status: mental status grossly normal Affect: normal affect Attitude: cooperative Thought process: Normal thought process present Thought content: Normal thought content present Insight: Good insight present (Psych) Medications Administered Discontinued Medications Generic Name Dose Route Start Last Admin Trade Name Freq PRN Reason Stop Dose Admin Hydroxyzine HCl 25 mg 05/18/24 07:36 05/18/24 08:11 Hydroxyzine Hcl 25 Mg Tablet PO 05/18/24 07:37 25 mg ONCE ONE Administration Sodium Chloride 1,000 mls @ 999 mls/hr 05/18/24 07:15 05/18/24 07:32 Ns IV 05/18/24 08:15 999 mls/hr .Q1H1M ROBERT Administration Medical Decision Making Medical Decision Making [facility] Narrative: Patient is a 23 year old assigned female at with no reported medical history presenting to the emergency department today with continued diarrhea. Patient's physical exam was unremarkable. Patient's blood work was unremarkable. I explained my physical exam findings as well as all test results to the patient. I answered all questions asked by the patient. I stressed the importance of the patient taking her medication as directed (either prescribed or as the over the counter packaging recommends). I stressed the importance of the patient following up with her primary care provider and a GI specialist. I stressed the importance of the patient returning to the emergency department immediately if her symptoms were to worsen or if she were to develop any dizziness, shortness of breath, difficulty breathing, chest pain, blurry vision, loss of vision, nausea, vomiting, abdominal pain, fever, chills, back pain, or any other complaints. Patient verbalized agreement and understanding with this treatment plan and discharge. Differential Diagnosis Differential Diagnoses: The differential diagnosis associated with the presentation includes Diarrhea Colitis Admission/Observation Consideration of admission/observation: Escalation of care including admission/observation considered Patient would have been admitted to the hospital had her work up had any findings where hospital admission was appropriate and her clinical presentation warranted hospital admission. Lab Data [facility] Lab Attestation statement: I reviewed the patient's lab results. My interpretation of these results are in the [facility] Rationale portion of this note. 05/18/24 07:13 05/18/24 07:13 Labs: Lab Results 05/18/24 05/18/24 Range/Units 07:13 07:52 WBC 6.7 (4.8-10.8) X10*3/uL RBC 4.67 (4.20-5.50) X10*6/uL Hgb 12.4 (12.0-16.0) g/dl Hct 38.0 (37.0-47.0) % MCV 81.4 (80.0-98.0) fL MCH 26.6 L (27.0-33.0) pg MCHC 32.6 (31.0-35.0) g/dl RDW 13.1 (11.0-16.0) % Plt Count 292 (160-400) X10*3/uL MPV 9.6 (9.4-12.3) fL Immature Gran % (Auto) 0.1 (0.0-0.4) % Neut % (Auto) 50.5 (45-73) % Lymph % (Auto) 38.0 (20-40) % [place] % (Auto) 7.7 (2-11) % Eos % (Auto) 2.8 (0-4) % Baso % (Auto) 0.9 (0-2) % Lymph # (Auto) 2.6 (1.2-4.9) X10*3/uL [place] # (Auto) 0.5 (0.1-1.2) X10*3/uL Eos # (Auto) 0.2 (0.0-0.4) X10*3/uL Baso # (Auto) 0.1 (0.0-0.2) X10*3/uL Abs Immat Gran (auto) 0.01 (0.00-0.03) X10*3/uL Absolute Neuts (auto) 3.4 (2.0-8.3) x10*3/uL Absolute Nucleated RBC 0.000 (0.0-0.012) X10*3/uL Nucleated RBC % (auto) 0.0 (0.0-0.2) /100WBC Sodium 139 (135-145) mmol/L Potassium 3.9 (3.3-5.1) mmol/L Chloride 106 (96-108) mmol/L Carbon Dioxide 26 (22-29) mmol/L Anion Gap 11 L (12-20) BUN 10 (9-16) mg/dL Creatinine 0.80 (0.5-1.4) mg/dL Estim Creat Clear Calc 119.6 Estimated GFR > 60 Random Glucose 101 (60-115) mg/dL Calcium 9.3 D (8.4-10.2) mg/dL Total Bilirubin 0.4 (0.0-1.0) mg/dL AST 17 (5-31) U/L ALT 20 (0-31) U/L Alkaline Phosphatase 76 (39-117) U/L Total Protein 7.6 (6.5-8.0) g/dL Albumin 4.0 (3.5-5.0) g/dL Influenza Type A (PCR) NEGATIVE (Negative) Influenza Type B (PCR) NEGATIVE (Negative) RSV RNA Qual (PCR) NEGATIVE (Negative) SARS-CoV-2 RNA (RT-PCR) NEGATIVE (Negative) Discharge Plan Discharge Clinical Impression: Diarrhea Patient Disposition: Home, Self-Care Instructions: Colitis (ED) Additional Instructions: Follow up with your primary care provider and a GI specialist. You can take over the counter immodium to help with your diarrhea but do not take more than the recommended dose on the box / bottle. Return to the emergency department immediately if your symptoms worsen or if you develop any dizziness, shortness of breath, difficulty breathing, chest pain, blurry vision, loss of vision, nausea, vomiting, abdominal pain, fever, chills, back pain, or any other complaints. Prescriptions: No Action hydroxyzine HCl 25 mg tablet 25 mg PO BID PRN (Reason: Anxiety) divalproex 250 mg Tablet,Delayed Release (Dr/Ec) 250 mg PO DAILY lidocaine [Lidocaine Pain Relief] 4 % Adhesive Patch,Medicated 1 patch transdermal DAILY PRN (Reason: chest wall pain) Qty: 30 0RF Protocol: Apply to: Apply to: upper sternum dextromethorphan polistirex 30 mg/5 mL suspension,extended rel 12 hr 10 ml PO Q12H PRN (Reason: cough) Qty: 89 0RF Referrals: [facility] Gastroenterology Services [Provider Group] (Call to establish and follow up with a GI specialist. ) [facility] Family Medicine [Provider Group] (Call to establish and follow up with a primary care provider. If you already have a primary care provider, please follow up with them.) [facility] Primary Care, González [Provider Group] (Call to establish and follow up with a primary care provider. If you already have a primary care provider, please follow up with them.) [facility] Primary Care,Jackie [Provider Group] (Call to establish and follow up with a primary care provider. If you already have a primary care provider, please follow up with them.) Stand Alone Forms: Work/School Release Interventions: ED Discharge Assessment Last Done: 05/18/24 09:08 Discharge Date/Time: 05/18/24 09:12 Print Language: Indonesian
[2024-05-18 07:17] LABS: MANUAL DIFF FLAG NO
[2024-05-18 07:19] LABS: Basophils Absolute Auto 0.1 X10*3/uL (0.0-0.2); Basophils Percent Auto 0.9 % (0-2); Eosinophils Absolute Auto 0.2 X10*3/uL (0.0-0.4); Eosinophils Percent Auto 2.8 % (0-4); Hemoglobin 12.4 g/dl (12.0-16.0); Imm Gran Abs Auto 0.01 X10*3/uL (0.00-0.03); Imm Gran Pct Auto 0.1 % (0.0-0.4); Lymphocytes Absolute Auto 2.6 X10*3/uL (1.2-4.9); Mean Corpuscular HGB Conc 32.6 g/dl (31.0-35.0); Mean Corpuscular Hemoglobin 26.6 pg (27.0-33.0); Mean Corpuscular Volume 81.4 fL (80.0-98.0); Mean Platelet Volume 9.6 fL (9.4-12.3); Monocytes Absolute Auto 0.5 X10*3/uL (0.1-1.2); Monocytes Percent Auto 7.7 % (2-11); Neutrophils Absolute Auto 3.4 x10*3/uL (2.0-8.3); Neutrophils Percent Auto 50.5 % (45-73); Platelet Count 292 X10*3/uL (160-400); Red Blood Count 4.67 X10*6/uL (4.20-5.50); Red Cell Distribution Width 13.1 % (11.0-16.0); White Blood Count 6.7 X10*3/uL (4.8-10.8)
[2024-05-18] MEDS: 0.9 % Sodium Chloride 1,000 ML 999 ML IV (07:32)
[2024-05-18 07:38] LABS: Anion Gap 11 (12-20); Aspartate Amino Transferase 17 U/L (5-31); Bilirubin Total 0.4 mg/dL (0.0-1.0); Blood Urea Nitrogen 10 mg/dL (9-16); Calcium 9.3 mg/dL (8.4-10.2); Carbon Dioxide 26 mmol/L (22-29); Chloride 106 mmol/L (96-108); Creatinine Clr Calc Pharmacy 119.6; Estimated Glomerular Filt Rate > 60; Glucose Random 101 mg/dL (60-115); Potassium 3.9 mmol/L (3.3-5.1); Sodium 139 mmol/L (135-145); Total Protein 7.6 g/dL (6.5-8.0)
[2024-05-18 07:41] LABS: Alanine Aminotransferase 20 U/L (0-31); Alkaline Phosphatase 76 U/L (39-117)
[2024-05-18] MEDS: hydrOXYzine HCL 25 MG TABLET PO (08:11)
[2024-05-18 08:38] VITALS: BP 134/75; PULSE 71; RESP 16; TEMP 36.6; O2SAT 98
[2024-05-18 08:40] LABS: Influenza A PCR NEGATIVE (Negative); Influenza B PCR NEGATIVE (Negative); Resp Syncy Virus RNA Qual PCR NEGATIVE (Negative); SARS COV2 PCR INHOUSE NEGATIVE (Negative)
[2024-05-18 09:08] VITALS: BP 134/75; PULSE 71; RESP 16; TEMP 36.6; O2SAT 98
== END 2024-05-18 09:12 | disposition home or self-care (01) ==
PROVIDERS: Physician Assistant Medical; Emergency Provider Emergency Medicine Emergency Medical Services
DX: R19.7 Diarrhea, unspecified (principal); Z03.818 Encounter for observation for suspected exposure to other biological agents ruled out
CPT/HCPCS: 0241U; 36415; 80053; 85025; 99283; 99284

== ENCOUNTER 2024-10-12 22:59 | Emergency (ER) | payer BC, SELFPAY ==
--- NOTE | ~2024-10-12 | MR_ITS ---
EXAMINATION: MR BRAIN WITHOUT CONTRAST CLINICAL INFORMATION: Left-sided weakness. COMPARISON: Correlated to CT brain and CT angiogram head dated October 12, 2024. TECHNIQUE: MRI of the brain was obtained using routine sequences without contrast. FINDINGS: No restricted diffusion within the brain parenchyma. No acute intracranial hemorrhage, mass effect, midline shift, hydrocephalus or herniation. Craven-white matter differentiation is normal. Posterior cranial fossa contents demonstrated no acute intracranial hemorrhage or mass effect. Flow-void signal within the main cerebral vessels is normal. Sellar/suprasellar region is normal. Craniocervical junction is intact and normal. Mild CSF prominence surrounding the intracanalicular segments of the optic nerves without papilledema. MR/MR head/brain wo con IMPRESSION: No acute stroke/nonhemorrhagic ischemia. No acute or structural brain abnormality. Electronically signed by: Heriberto Bourne MD 10/13/2024 08:59 AM LEANN
--- NOTE | ~2024-10-12 | CT_ITS ---
CLINICAL HISTORY: l side weakness CT head without contrast Comparison: 02/13/2024 Findings: Motion artifact limits assessment. No definite acute hemorrhage is identified. Significant abnormalities could go undetected. Recommend repeat study when patient can cooperate. No definite acute bony abnormality. Sinuses and mastoids clear. Impression: Limited study due to motion artifact No definite acute abnormality identified Recommend repeat study when patient can cooperate This document has been electronically signed by: Amadou Beal MD on 10/12/2024 23:50:35
--- NOTE | ~2024-10-12 | XR_ITS ---
CLINICAL HISTORY: fever 1 view chest x-ray Comparison: CR/SR - XR CHEST 1V - 02/14/24 02:30 EDT Findings: The lungs are clear. Normal size heart. No acute fracture. IMPRESSION: 1. No acute findings. This document has been electronically signed by: Shiva Rodríguez MD, PHD on 10/13/2024 02:31:42
--- NOTE | ~2024-10-12 | CT_ITS ---
CLINICAL HISTORY: L arm leg weakness CT angiography head and neck with contrast. 3D Postprocessing. Comparison: None Findings: Aortic arch and cervical great vessels are patent. Intracranial arteries are patent. No aneurysm, dissection, or occlusion. No abnormal intracranial enhancement. The visualized thyroid gland is unremarkable. No cervical mass or fluid collection. Mild cervical lymph node enlargement is present. Submandibular node is mildly enlarged. Lung apices clear. No acute fracture. IMPRESSION: Patent head and neck CTA. Mild cervical lymph node enlargement. This document has been electronically signed by: Shiva Rodríguez MD, PHD on 10/13/2024 03:03:21
[2024-10-12 23:03] VITALS: BP 136/87; PULSE 144; RESP 20; TEMP 38; O2SAT 99; BMI 34.5
--- NOTE | 2024-10-12 23:23 | ED_ITS ---
HPI - Neuro Symptoms/Deficit General Chief Complaint: Neuro Symptoms/Deficit Stated Complaint: left side cant feel Time Seen by Provider: 10/12/24 23:18 Source: patient Mode of arrival: ambulatory Limitations: no limitations History of Present Illness ED Provider: HPI Narrative: Patient's history of anxiety increased stress comes here for left-sided weakness started at 20:00 patient was upset and started feeling weakness in the left side of the body including arms in the leg no patient with symmetry no speech problems patient has had similar symptoms in 03/[address]A and head CT negative after COVID patient is very emotional on arrival complaining of headache also vomited once prior to arrival Related Data Home Medications ?Medication ?Instructions ?Recorded ?Confirmed divalproex 250 mg tablet,delayed 250 mg PO DAILY 02/13/24 02/13/24 release hydroxyzine HCl 25 mg tablet 25 mg PO BID PRN Anxiety 02/13/24 02/13/24 Previous Rx's ?Medication ?Instructions ?Recorded dextromethorphan polistirex 30 10 ml PO Q12H PRN cough #89 mL 02/15/24 mg/5 mL oral susp ext.release 12hr lidocaine 4 % topical patch 1 patch transdermal DAILY PRN 02/15/24 (Lidocaine Pain Relief) chest wall pain #30 ea Allergies Allergy/AdvReac Type Severity Reaction Status Date / Time Penicillins Allergy Unknown Unknown Verified 05/18/24 06:43 Bleach (Sodium Hypochlorite) Allergy Hives Verified 10/12/24 23:06 Review of Systems 2 Review of Systems: Yes all other systems are reviewed and are negative PMFSH Past Medical History Medical History Bipolar depression Social History Social History Household Members: Family Housing: House Do you presently have visiting nurse or other home services: No Alcohol intake: never Patient Tobacco Use Status: Never used Tobacco Smoked in Last 30 Days: No Use of substances other than those prescribed or required for medical reasons: No Substance Use Type: Marijuana Any prior treatment program specific to substance use: No Advance Directives: No Advance Directives Information Provided: Yes Do you have a plan to hurt others: No Plan Patient : No service: No Physical Exam 2 Vital Signs: Vital Signs: Last Vital Signs Temp 100.2 F 10/12/24 23:55 Pulse 114 H 10/12/24 23:55 Resp 16 10/12/24 23:55 BP 129/79 10/12/24 23:55 Pulse Ox 93 10/12/24 23:55 O2 Del Method Room Air 10/12/24 23:55 BMI result Body Mass Index 34.5 Appearance: Alert. Oriented X3. No acute distress. Anxious Eyes: PERRLA, No Nystagmus ENT: Pharynx normal. Oral Mucosa moist Neck: Normal inspection. Neck supple. Kernig sign negative CVS: Normal heart rate and rhythm. Pulses normal. Respiratory: No respiratory distress. Equal air entry bilateral, no wheezing/rales/rhonchi Abdomen: Soft and nontender. Bowel sounds are present, no mass palpable, no CVA tenderness Skin: Skin warm and dry. Normal skin color. Normal skin turgor. Extremities: No lower extremity edema. No calf tenderness Neuro: Oriented X 3. Functional left-sided weakness no facial asymmetry noticed speech normal Medications Administered Discontinued Medications Generic Name Dose Route Start Last Admin Trade Name Freq PRN Reason Stop Dose Admin Acetaminophen 650 mg 10/13/24 00:45 10/13/24 01:34 Acetaminophen 325 Mg Tablet PO 10/13/24 00:46 650 mg ONCE ONE Administration Sodium Chloride 1,000 mls @ 999 mls/hr 10/13/24 00:44 10/13/24 01:34 Ns IV 10/13/24 01:44 999 mls/hr .Q1H1M ONE Administration Ketorolac Tromethamine 30 mg 10/13/24 00:40 10/13/24 01:35 Ketorolac Tromethamine 30 Mg/Ml Vial IVPUSH 10/13/24 00:41 30 mg ONCE ONE Administration Lorazepam 2 mg 10/12/24 23:32 10/12/24 23:44 Lorazepam 2 Mg/Ml Vial IVPUSH 10/12/24 23:33 2 mg ONCE ONE Administration Medical Decision Making Medical Decision Making [facility] Narrative: Patient's seems functional left-sided weakness with somatization initially patient was able to raise the left hand when she noticed that she is moving her left upper extremity she started dropping it reflexes are normal tone is normal CT scan of the head is negative for acute low risk factor for CVA likely somatization/functional patient with leukocytosis noted to have temperature of 100.4 degrees will check for the COVID blood culture lactic acid no signs of meningitis patient has had normal lactic acid level Will check UA to find any source of infection also with a chest Xray Patient has had similar symptoms and got better after stay in the hospital will re-evaluate in the a.m. if symptoms continues may need MRI of the brain Differential Diagnosis Differential Diagnoses: The differential diagnosis associated with the presentation includes Somatization syndrome/CVA/anxiety Lab Data [facility] Lab Attestation statement: I reviewed the patient's lab results. 10/12/24 23:34 10/12/24 23:34 Labs: Lab Results 10/12/24 10/13/24 Range/Units 23:34 01:05 WBC 18.5 H (4.8-10.8) X10*3/uL RBC 4.70 (4.20-5.50) X10*6/uL Hgb 12.8 (12.0-16.0) g/dl Hct 37.4 (37.0-47.0) % MCV 79.6 L (80.0-98.0) fL MCH 27.2 (27.0-33.0) pg MCHC 34.2 (31.0-35.0) g/dl RDW 12.8 (11.0-16.0) % Plt Count 359 (160-400) X10*3/uL MPV 9.8 (9.4-12.3) fL Immature Gran % (Auto) 0.4 (0.0-0.4) % Neut % (Auto) 85.5 H (45-73) % Lymph % (Auto) 9.4 L (20-40) % [place] % (Auto) 4.0 (2-11) % Eos % (Auto) 0.3 (0-4) % Baso % (Auto) 0.4 (0-2) % Lymph # (Auto) 1.7 (1.2-4.9) X10*3/uL [place] # (Auto) 0.7 (0.1-1.2) X10*3/uL Eos # (Auto) 0.1 (0.0-0.4) X10*3/uL Baso # (Auto) 0.1 (0.0-0.2) X10*3/uL Abs Immat Gran (auto) 0.07 H (0.00-0.03) X10*3/uL Absolute Neuts (auto) 15.8 H (2.0-8.3) x10*3/uL Absolute Nucleated RBC 0.000 (0.0-0.012) X10*3/uL Nucleated RBC % (auto) 0.0 (0.0-0.2) /100WBC ESR 17 (0-20) MM/HR Sodium 141 (135-145) mmol/L Potassium 3.8 (3.3-5.1) mmol/L Chloride 103 (96-108) mmol/L Carbon Dioxide 22 (22-29) mmol/L Anion Gap 20 (12-20) BUN 11 (9-16) mg/dL Creatinine 0.82 (0.5-1.4) mg/dL Estim Creat Clear Calc 118.8 Estimated GFR > 60 Random Glucose 103 (60-115) mg/dL Lactic Acid 0.8 (0.5-2.0) mmol/L Calcium 9.8 (8.4-10.2) mg/dL Total Bilirubin 0.5 (0.0-1.0) mg/dL AST 26 (5-31) U/L ALT 32 H (0-31) U/L Alkaline Phosphatase 88 (39-117) U/L Total Protein 9.0 H (6.5-8.0) g/dL Albumin 4.6 (3.5-5.0) g/dL Influenza Type A (PCR) NEGATIVE (Negative) Influenza Type B (PCR) NEGATIVE (Negative) RSV RNA Qual (PCR) NEGATIVE (Negative) SARS-CoV-2 RNA (RT-PCR) NEGATIVE (Negative) Radiology Impression Discussion of test interpretation with radiology: I have reviewed the radiologist's reading. NIH Stroke Scale Internal: Initial- Upon Arrival Level of Consciousness: Alert Level of Consciousness Questions: Answers both questions correctly Level of Consciousness Commands: Performs both tasks correctly Best Gaze: Normal Visual: No visual loss Facial Palsy: Normal Motor Arm (Right): No drift Motor Arm (Left): Drift Motor Leg (Right): No drift Motor Leg (Left): Drift Limb Ataxia: Absent Sensory: Normal Best Language: No aphasia Dysarthia: Normal Extinction and Inattention: No abnormality Score: 2 Discharge Plan Discharge Clinical Impression: Functional neurological symptom disorder with weakness or paralysis, Anxiety, Leukocytosis Patient Disposition: Still a Patient Prescriptions: No Action hydroxyzine HCl 25 mg tablet 25 mg PO BID PRN (Reason: Anxiety) divalproex 250 mg Tablet,Delayed Release (Dr/Ec) 250 mg PO DAILY lidocaine [Lidocaine Pain Relief] 4 % Adhesive Patch,Medicated 1 patch transdermal DAILY PRN (Reason: chest wall pain) Qty: 30 0RF Protocol: Apply to: Apply to: upper sternum dextromethorphan polistirex 30 mg/5 mL suspension,extended rel 12 hr 10 ml PO Q12H PRN (Reason: cough) Qty: 89 0RF Print Language: Pashto
--- NOTE | 2024-10-12 23:25 | PC.NURSE ---
pt ct completed, pt anxiouse. rr elevated. family at bedside. pt states she feels anxious. pt seen by provider. left side weakness, arm drops to bedside when elevated. same as for left leg. pt is alert and oriented x3. pupil focus and tracks. facial smile to the right. no smile to the left side. tongue diviates to the right side. .
[2024-10-12 23:39] LABS: MANUAL DIFF FLAG NO
[2024-10-12 23:40] LABS: Basophils Absolute Auto 0.1 X10*3/uL (0.0-0.2); Basophils Percent Auto 0.4 % (0-2); Eosinophils Absolute Auto 0.1 X10*3/uL (0.0-0.4); Eosinophils Percent Auto 0.3 % (0-4); Hematocrit 37.4 % (37.0-47.0); Hemoglobin 12.8 g/dl (12.0-16.0); Imm Gran Abs Auto 0.07 X10*3/uL (0.00-0.03); Imm Gran Pct Auto 0.4 % (0.0-0.4); Lymphocytes Absolute Auto 1.7 X10*3/uL (1.2-4.9); Lymphocytes Percent Auto 9.4 % (20-40); Mean Corpuscular HGB Conc 34.2 g/dl (31.0-35.0); Mean Corpuscular Hemoglobin 27.2 pg (27.0-33.0); Mean Corpuscular Volume 79.6 fL (80.0-98.0); Mean Platelet Volume 9.8 fL (9.4-12.3); Monocytes Absolute Auto 0.7 X10*3/uL (0.1-1.2); Neutrophils Absolute Auto 15.8 x10*3/uL (2.0-8.3); Neutrophils Percent Auto 85.5 % (45-73); Platelet Count 359 X10*3/uL (160-400); Red Cell Distribution Width 12.8 % (11.0-16.0); White Blood Count 18.5 X10*3/uL (4.8-10.8)
[2024-10-12] MEDS: LORazepam 2 MG/ML VIAL IVPUSH (23:44)
--- NOTE | 2024-10-12 23:52 | PC.NURSE ---
pt is now asking for food, pt is calmer and sleepy at this time. Dr Foley states this is not a stroke. pt did have a ct of the head results pending.
[2024-10-12 23:55] VITALS: BP 129/79; PULSE 114; RESP 16; TEMP 37.9; O2SAT 93
[2024-10-13] VITALS (12 sets, daily range): BP systolic 98–158; BP diastolic 61–86; PULSE 77–133; RESP 15–22; TEMP 36.4–36.9; O2SAT 92–99
[2024-10-13 00:01] LABS: Alanine Aminotransferase 32 U/L (0-31); Albumin Level 4.6 g/dL (3.5-5.0); Alkaline Phosphatase 88 U/L (39-117); Anion Gap 20 (12-20); Aspartate Amino Transferase 26 U/L (5-31); Bilirubin Total 0.5 mg/dL (0.0-1.0); Blood Urea Nitrogen 11 mg/dL (9-16); Calcium 9.8 mg/dL (8.4-10.2); Carbon Dioxide 22 mmol/L (22-29); Chloride 103 mmol/L (96-108); Creatinine Clr Calc Pharmacy 118.8; Estimated Glomerular Filt Rate > 60; Glucose Random 103 mg/dL (60-115); Potassium 3.8 mmol/L (3.3-5.1); Sodium 141 mmol/L (135-145)
[2024-10-13 00:12] LABS: Erythrocyte Sedimentation Rate 17 MM/HR (0-20)
[2024-10-13 01:25] LABS: Lactic Acid 0.8 mmol/L (0.5-2.0)
[2024-10-13] MEDS: 0.9 % Sodium Chloride 1,000 ML 999 ML IV (01:34)
[2024-10-13] MEDS: Acetaminophen 325 MG TABLET 650 MG PO (01:34)
[2024-10-13] MEDS: Ketorolac Tromethamine 30 MG/ML VIAL IVPUSH (01:35)
--- NOTE | 2024-10-13 01:45 | PC.NURSE ---
gianna status unchanged, family at bedside.
[2024-10-13 01:50] LABS: Influenza A PCR NEGATIVE (Negative); Influenza B PCR NEGATIVE (Negative); Resp Syncy Virus RNA Qual PCR NEGATIVE (Negative); SARS COV2 PCR INHOUSE NEGATIVE (Negative)
[2024-10-13] MEDS: iohexoL 350 MG/ML 100 ML INFUS..BTL 75 ML IV (02:21)
[2024-10-13 03:20] LABS: Appearance Urine Clear; Color Urine Yellow; Glucose Urine UA Negative (Negative); Leukocyte Esterase Urine Negative (Negative); Nitrite Urine Negative (Negative); PH >= 9.0 (5.0-9.0); Specific Gravity - Urine >= 1.030 (1.005-1.025); UMIC TRIGGER UACC YES; Urine Blood Negative (Negative); Urine Ketones Negative (Negative); Urine Protein 30 (1+) mg/dL (Neg-Trace)
[2024-10-13 03:23] LABS: Bacteria Urine 1+ (None Seen); Hyaline Casts Urine 0-2 /LPF (0-2); RBC Urine 0-2 /HPF (0-2); WBC Urine 0-5 /HPF (0-5)
[2024-10-13 04:15] LABS: Amphetamine Screen Urine Not Detected (Not Detect); Barbiturates, Urine Not Detected (Not Detect); Benzodiazepines Screen Urine Not Detected (Not Detect); Buprenorphine Scr Not Detected (Not Detect); Cannabinoid Screen Urine Not Detected (Not Detect); Cocaine Screen Urine Not Detected (Not Detect); Fentanyl, urine Not Detected (Not Detect); Methadone Screen, Urine Not Detected (Not Detect); Opiate Screen Urine Not Detected (Not Detect); Oxycodone Screen Urine Not Detected (Not Detect); Phencyclidine Screen Urine Not Detected (Not Detect)
--- NOTE | 2024-10-13 07:30 | PC.NURSE ---
Pt taken to MRI.
--- NOTE | 2024-10-13 08:43 | PC.NURSE ---
Pt brought back from MRI. A/ox3, speaking in full sentences, left sided weakness, unequal strength bilaterally, pt able to follow commands, no facial droop noted, neuros intact otherwise. Respirations even and unlabored, denies sob/increased wob. Pt updated on plan of care. Call fitzgerald within reach, all needs met at this time.
[2024-10-13] MEDS: LORazepam 1 MG TABLET 2 MG PO (09:54)
[2024-10-13] MEDS: diphenhydrAMINE HCL 50 MG/ML VIAL 25 MG IVPUSH (12:46)
[2024-10-13] MEDS: Ketorolac Tromethamine 15 MG/ML VIAL IVPUSH (12:49)
[2024-10-13] MEDS: Prochlorperazine Edisylate 10 MG/2 ML VIAL IVPUSH (12:49)
[2024-10-13] MEDS: Acetaminophen 325 MG TABLET 975 MG PO (15:52)
[2024-10-13] MEDS: Lactated Ringers 1,000 ML 999 ML IV (18:49)
--- NOTE | 2024-10-13 20:13 | PHA.MEDREC ---
Pharmacy Consult ? Medication Reconciliation Pharmacy has completed the medication reconciliation.
--- NOTE | 2024-10-13 22:53 | PC.NURSE ---
pt ambulated to bathroom with walker, pt felt like her arm was stronger than before but L leg is still weak and dragging. assisted back to bed
[2024-10-13] MEDS: hydrOXYzine HCL 25 MG TABLET PO (23:31)
[2024-10-14 06:02] VITALS: BP 120/75; PULSE 89; RESP 16; TEMP 36.6; O2SAT 99
[2024-10-14 08:24] VITALS: BP 120/75; PULSE 89; RESP 16; TEMP 36.6; O2SAT 99
== END 2024-10-14 08:24 | disposition home or self-care (01) ==
PROVIDERS: Emergency Medicine; Internal Medicine; Emergency Provider Emergency Medicine; PCP Obstetrics & Gynecology
DX: F44.7 Conversion disorder with mixed symptom presentation (principal); R53.1 Weakness; D72.829 Elevated white blood cell count, unspecified; R50.9 Fever, unspecified; R51.9 Headache, unspecified; Z79.899 Other long term (current) drug therapy
CPT/HCPCS: 0241U; 36415; 70450; 70496; 70498; 70551; 71045; 80053; 80307; 81001; 83605; 85025; 85652; 87040; 96361; 96374; 96375; 96376; 99285; J0737; J1200; J1885; J2060; J7120; Q9967

== ENCOUNTER → 2024-10-12 23:19 | Outpatient (BNV) | payer BC, SELFPAY | PROVIDERS: Emergency Provider Internal Medicine; PCP Obstetrics & Gynecology; Visit Provider Radiology Diagnostic Radiology | DX: G81.94 Hemiplegia, unspecified affecting left nondominant side (principal) | CPT/HCPCS: 70450 ==

== ENCOUNTER → 2024-10-13 01:57 | Outpatient (BNV) | payer BC, SELFPAY | PROVIDERS: Emergency Provider Emergency Medicine; PCP Obstetrics & Gynecology; Visit Provider General Practice | DX: G81.94 Hemiplegia, unspecified affecting left nondominant side (principal); R50.9 Fever, unspecified | CPT/HCPCS: 70496; 70498; 70551; 71045 ==

== ENCOUNTER 2025-01-05 06:14 | Emergency (ER) | payer MEDICAID, SELFPAY ==
--- NOTE | ~2025-01-05 | XR_ITS ---
CLINICAL HISTORY: dyspnea 1 view chest x-ray Comparison: CR - XR CHEST 1V - 10/13/24 02:01 EST Findings: Consolidation in the medial aspect of the right lower lung. Heart size is stable. Left lung is clear. No effusions. No acute osseous findings. IMPRESSION: 1. Consolidation within the medial aspect of the right lower lung concerning for pneumonia. This document has been electronically signed by: Marisela Garcia MD on 01/05/2025 07:54:14
[2025-01-05 06:22] VITALS: BP 140/89; PULSE 106; RESP 20; TEMP 37.2; O2SAT 95; BMI 33.9
--- NOTE | 2025-01-05 07:13 | ED.SOB ---
HPI - SOB/Dyspnea General Chief Complaint: Dyspnea Stated Complaint: bronchitis Time Seen by Provider: 01/05/25 07:09 Mode of arrival: ambulatory Limitations: no limitations History of Present Illness HPI Narrative: This is a 24 years old female with a history of bipolar disorder anxiety seen last week [facility] in [place] diagnosed with bronchitis started on prednisone Tessalon presented today because she is still coughing and the she sees streak of blood in the cough. She denies any fever chills vomiting she is nonsmoker no history of asthma MD elicited complaint: cough Onset (ago): week(s) (1) Context: recent illness Timing: constant Severity: moderate Relieving factors: nothing Associated symptoms: denies other symptoms Related Data Home oxygen amount: none Home Medications ?Medication ?Instructions ?Recorded ?Confirmed cholecalciferol (vitamin D3) 1,250 1,250 mcg PO Q7D 10/13/24 10/13/24 mcg (50,000 unit) capsule desogestrel-e.estradiol 0.15 1 tab PO DAILY 10/13/24 10/13/24 mg-0.02 mg(21)/e.estrad 0.01 mg(5) tablet (Volnea (28)) hydroxyzine HCl 25 mg tablet 25 mg PO TID PRN Anxiety 10/13/24 10/13/24 lisdexamfetamine 60 mg capsule 60 mg PO DAILY 10/13/24 10/13/24 (Vyvanse) lurasidone 80 mg tablet 80 mg PO DAILY 10/13/24 10/13/24 Previous Rx's ?Medication ?Instructions ?Recorded doxycycline monohydrate 100 mg 100 mg PO BID #14 caps 01/05/25 capsule (Monodox) guaifenesin 100 mg/5 mL oral 200 mg (10 mL) PO Q4H PRN cough 01/05/25 liquid (Tussin) #473 mL ondansetron 4 mg disintegrating 4 mg PO Q8H nausea/vomiting 4 days 01/05/25 tablet #12 tabs Allergies Allergy/AdvReac Type Severity Reaction Status Date / Time Penicillins Allergy Unknown Unknown Verified 01/05/25 06:25 Bleach (Sodium Hypochlorite) Allergy Hives Verified 01/05/25 06:25 Review of Systems Constitutional: Constitutional: Denies fever(s) Cardiovascular: Cardiovascular: Denies lightheadedness Respiratory: Respiratory: Reports as per HPI, Reports chest congestion and Reports cough PMFSH Past Medical History Attestation statement: The following information was validated with the patient. Medical History Bipolar depression Social History Social History Household Members: Family Housing: House Do you presently have visiting nurse or other home services: No Alcohol intake: never Patient Tobacco Use Status: Never used Tobacco Substance Use Type: Marijuana Advance Directives: No Advance Directives Information Provided: Yes service: No Physical Exam Vital Signs: Vital Signs: Last Vital Signs Temp 97.9 F 01/05/25 08:48 Pulse 91 01/05/25 08:48 Resp 16 01/05/25 08:48 BP 122/80 01/05/25 08:48 Pulse Ox 97 01/05/25 08:48 O2 Del Method Room Air 01/05/25 08:48 BMI result Body Mass Index 33.9 No acute distress looks well Const: General: cooperative and comfortable Nutritional Appearance: average body habitus Orientation/consciousness: patient oriented x3 HEENT: Head: Yes normal to inspection General nose exam: Normal external nose present Face and sinus: Yes normal facial exam Neck: Neck: Yes normal visual inspection Chest: Chest palpation & inspection: normal inspection of the chest Resp: Effort & Inspection: normal respiratory effort Auscultation: rhonchi Cardio: Jugular venous distension: no JVD Rate: regular rate Rhythm: regular rhythm GI: Inspection: Yes normal to inspection Palpation (GI): Soft to palpation, not firm and nontender Auscultation: normal bowel sounds Neuro: General: patient oriented x3 Cranial nerves: Yes CN's II-XII intact bilaterally Cognition (Neuro): normal cognition Course Reevaluation(s) Reevaluation #1: Chest x-ray reviewed by me also reviewed radiology report possible right lower lobe pneumonia we will discharge the patient on p.o. antibiotic she has a an allergy to penicillin we will discharge doxycycline she has no fever at this time sat is 95% on room air she has no comorbidity I think she can be discharged home Time: 08:22 Medical Decision Making Medical Decision Making MDM Narrative: Patient is here with cough congestion reasonable to get chest x-ray viral panel Differential Diagnosis Differential Diagnoses: The differential diagnosis associated with the presentation includes Bronchitis/pneumonia/COVID/flu Admission/Observation Consideration of admission/observation: Escalation of care including admission/observation considered Lab Data MDM Lab Attestation statement: I reviewed the patient's lab results. Labs: Lab Results 01/05/25 Range/Units 06:29 Influenza Type A (PCR) NEGATIVE (Negative) Influenza Type B (PCR) NEGATIVE (Negative) RSV RNA Qual (PCR) NEGATIVE (Negative) SARS-CoV-2 RNA (RT-PCR) NEGATIVE (Negative) Independent Interpretation I performed an independent interpretation of an: Plain X-Ray Interpretation: Question right lower lobe pneumonia Radiology Impression Radiologist Impression: CLINICAL HISTORY: dyspnea 1 view chest x-ray Comparison: CR - XR CHEST 1V - 10/13/24 02:01 EST Findings: Consolidation in the medial aspect of the right lower lung. Heart size is stable. Left lung is clear. No effusions. No acute osseous findings. IMPRESSION: 1. Consolidation within the medial aspect of the right lower lung concerning for pneumonia. This document has been electronically signed by: Marisela Garcia MD on 01/05/2025 07:54:14 Dictated By: Marisela Garcia MD Signed By: <Electronically signed by Marisela Garcia MD in OV> 01/05/25 0755 DD/ 0754 TD/TT: 01/05/25 0754 Research Associate Policy Discharge Plan Discharge Clinical Impression: Pneumonia, Community acquired pneumonia Patient Disposition: Home, Self-Care Instructions: Community Acquired Pneumonia (DC) Additional Instructions: Take antibiotic as directed follow-up with your primary care physician return to the emergency room if you worse Prescriptions: New doxycycline monohydrate [Monodox] 100 mg capsule 100 mg PO BID Qty: 14 0RF ondansetron 4 mg tablet,disintegrating 4 mg PO Q8H 4 Days Qty: 12 0RF guaifenesin [Tussin] 100 mg/5 mL liquid 200 mg PO Q4H PRN (Reason: cough) Qty: 473 0RF No Action desog-e.estradiol/e.estradiol [Volnea (28)] 0.15-0.02 mgx21 /0.01 mg x 5 tablet 1 tab PO DAILY hydroxyzine HCl 25 mg tablet 25 mg PO TID PRN (Reason: Anxiety) cholecalciferol (vitamin D3) 1,250 mcg (50,000 unit) capsule 1,250 mcg PO Q7D lisdexamfetamine [Vyvanse] 60 mg capsule 60 mg PO DAILY lurasidone 80 mg tablet 80 mg PO DAILY Stand Alone Forms: Work/School Release Interventions: ED Discharge Assessment Last Done: 01/05/25 08:48 Discharge Date/Time: 01/05/25 08:49 Print Language: [place]
[2025-01-05 07:15] LABS: Influenza A PCR NEGATIVE (Negative); Influenza B PCR NEGATIVE (Negative); Resp Syncy Virus RNA Qual PCR NEGATIVE (Negative); SARS COV2 PCR INHOUSE NEGATIVE (Negative)
[2025-01-05 08:26] VITALS: BP 122/80; PULSE 91; RESP 16; TEMP 36.6; O2SAT 97
[2025-01-05 08:48] VITALS: BP 122/80; PULSE 91; RESP 16; TEMP 36.6; O2SAT 97
== END 2025-01-05 08:49 | disposition home or self-care (01) ==
PROVIDERS: Emergency Provider Emergency Medicine
DX: J18.9 Pneumonia, unspecified organism (principal); R05.9 Cough, unspecified; Z03.818 Encounter for observation for suspected exposure to other biological agents ruled out
CPT/HCPCS: 0241U; 71045; 99283

== ENCOUNTER → 2025-01-05 06:39 | Outpatient (BNV) | payer MEDICAID, SELFPAY | PROVIDERS: Emergency Provider Emergency Medicine; Visit Provider Radiology Diagnostic Radiology | DX: R06.00 Dyspnea, unspecified (principal) | CPT/HCPCS: 71045 ==